=== PATIENT | male | born 1965 | race Caucasian/White ===

== ENCOUNTER → 2017-01-13 | Outpatient (CLI) | payer BC ==
[~2017-01-13] MED LIST: ALBU1AER9 INH; ASCO500T16 PO; CETI10TA10 PO; CHOL2000 PO; CHOL400T5 PO; FLUT0.0529 NAE; FLUT0.15 NAE; FLUT110A INH; FLVHFA110 INH; FURO-85 PO; GABA-112 PO; LORA-741 PO; METO-217 PO; METO25TA56 PO; MYCO500T4 PO; ONDA4TAB46 PO; OXYC-57 PO; OXYC1TAB3 PO; POTA20TA13 PO; VNTHFA/IN INH
--- NOTE | 2017-01-13 16:24 | DIAGNOSTIC IMAGING REPORT ---
CT OF THE ABDOMEN AND PELVIS WITHOUT CONTRAST CLINICAL HISTORY: Acute right lower quadrant pain and burning. Evaluate for hernia. Previous hernia repair. COMPARISON STUDY: No previous studies for comparison. TECHNIQUE: Axial images of the abdomen and pelvis were obtained without IV contrast. Images were reviewed in the axial, sagittal, and coronal planes. FINDINGS: A fat-containing hiatal hernia is noted. There is geographic fatty infiltration within the right hepatic lobe. There is also a 5.2 cm mass-like hypodense focus within the right hepatic dome shown on image 5 of 97. This likely reflects focal fat. Unenhanced images of the spleen, adrenal glands, left kidney and pancreas are normal. Multiple right renal calculi measure up to 5 mm. There are no ureteral calculi. There is no hydronephrosis. There is no evidence for a bowel obstruction. The appendix is not visualized. There are findings consistent with an umbilical hernia repair with mesh. There is no evidence for recurrent umbilical hernia. There is no ascites. Mild mesenteric infiltration is of doubtful significance. There are no suspicious skeletal lesions. There is colonic diverticulosis without evidence for acute diverticulitis. IMPRESSION: 1. Right-sided nephrolithiasis. No ureteral calculi or hydronephrosis. 2. Geographic fatty infiltration within the right hepatic lobe with a 5.2 cm mass-like hypodense focus within the right hepatic dome. This likely reflects focal fat. However, a nonemergent MRI of the liver is recommended to exclude the possibility of an underlying mass. 3. Previous umbilical hernia repair with mesh. No recurrent umbilical hernia. 4. Colonic diverticulosis without evidence for acute diverticulitis. Electronically signed by: Costa June M.D. 01/13/2017 4:22 PM Dictated Date/Time: 01/13/2017 4:12 PM
== END | disposition home or self-care (01) ==
LOC: C.CTS 16:00
PROVIDERS: ATTEND Nurse Practitioner
DX: R10.30 Lower abdominal pain, unspecified (principal); N20.0 Calculus of kidney; K76.0 Fatty (change of) liver, not elsewhere classified; K57.30 Diverticulosis of large intestine without perforation or abscess without bleeding; Z98.890 Other specified postprocedural states

== ENCOUNTER → 2017-01-25 | Outpatient (CLI) | payer BC ==
[~2017-01-25] MED LIST changes: +GADOXETATE DISODIUM (NON-WT BASED PROCEDURE) IV PRN
--- NOTE | 2017-01-25 08:44 | DIAGNOSTIC IMAGING REPORT ---
MRI LIVER COMBO CLINICAL HISTORY: Abnormal CT scan. Right lobe hepatic mass versus geographic fat TECHNIQUE: Imaging was performed prior to and following IV contrast injection. The patient was administered 10 cc of intravenous Eovist. Imaging was performed in the coronal and axial planes. COMPARISON STUDY: CT scan dated 01/13/2017 FINDINGS: The patient had difficulty with breath holding, and the examination is limited from a medical standpoint due to motion artifact. There is a fat-containing hiatal hernia. No splenic masses are visualized. No gallbladder abnormalities are visualized. No pancreatic masses are visualized. No adrenal masses are visualized. There are small T2 bright nonenhancing renal lesions which are felt to represent cysts. The largest is located on the left measuring 16 mm. There is no evidence of abdominal aortic dilatation. There is no ductal dilatation. No hepatic masses are visualized. IMPRESSION: 1. Technically limited study secondary to motion artifact 2. No acute findings. No hepatic masses are visualized. Electronically signed by: Kanu Stoll M.D. 01/25/2017 8:42 AM Dictated Date/Time: 01/25/2017 8:37 AM
== END | disposition home or self-care (01) ==
LOC: C.MRIBC 06:42
PROVIDERS: ATTEND Family Medicine
DX: R10.9 Unspecified abdominal pain (principal)

== ENCOUNTER 2017-03-16 11:26 | Observation (INO) | payer BC ==
[~2017-03-16] VITALS: Ht 182.9 cm; Wt 120.7 kg
[~2017-03-16 11:26] MED LIST changes: -CHOL400T5 PO; -FLUT0.15 NAE; -FLVHFA110 INH; -GABA-112 PO; -GADOXETATE DISODIUM (NON-WT BASED PROCEDURE) IV PRN; -METO-217 PO; -OXYC-57 PO; -VNTHFA/IN INH
[2017-03-16] MEDS ORDERED: ONDANSETRON INJ 2 MG/ML 2 ML VIAL IV STA (11:40)
[2017-03-16] MEDS ORDERED: SODIUM CHLORIDE 0.9% 1000ML 1,000 ML IV STA (11:40)
--- NOTE | 2017-03-16 11:47 | EMERGENCY ROOM VISIT NOTE ---
History Report prepared by Silvestre: Jeremias Blanchard Under the Supervision of: Dr. Naveen Carter M.D. First contact with patient: 11:30 Chief Complaint: DIZZY Stated Complaint: NEAR SYNCOPE History of Present Illness The patient is a 51 year old male who presents to the Emergency Room with complaints of a sudden near syncopal that occurred prior to arrival. Per nursing , the patient was working and was experiencing lightheadedness, weakness, double vision, dysphasia, and felt like he needed to pass out. 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 The patient admits that his CellCept dosage has been reduced in half yesterday when he visited Dr. Chilel. He reports that he took his Lasix this morning, but has not urinated yet. The patient admits that he has a degenerative bone disease. He denies ever having an experience like this before. The patient denies taking any steroids. Source of History: patient Onset: prior to arrival Position: other (global) Quality: other (weakness) Timing: other (sudden) Associated Symptoms: + fatigue, + weakness Review of Systems See HPI for pertinent positives & negatives. A total of 10 systems reviewed and were otherwise negative. Past Medical & Surgical Medical Problems: (1) Appendectomy (2) Chronic inflammatory demyelinating neuropathy (3) Dizziness (4) Guillain-Espinoza syndrome (5) Kidney stone (6) Lyme disease (7) right knee surgery (8) Tonsillectomy Family History Diabetes mellitus FH: cancer FH: gallbladder disease FH: heart disease FH: lung disease Hypertension Kidney disease Kidney stones Seizures Social History Smoking Status: Never Smoker Alcohol Use: occasionally Marital Status: Housing Status: lives with family Occupation Status: employed Current/Historical Medications Scheduled Albuterol Hfa (Ventolin Hfa), 2 PUFFS INH Q4H Cholecalciferol (Vitamin D), 400 UNITS PO DAILY Fluticasone Propionate (Flovent Hfa), 1 PUFFS INH BID Fluticasone Propionate (Nasal) (Flonase Allergy Relief), 2 SPRAY CAROLANN DAILY Gabapentin (Neurontin), 100 MG PO TID Metoprolol Succinate (Toprol Xl), 50 MG PO DAILY Mycophenolate Mofetil (Cellcept), 1,000 MG PO DAILY Potassium Chloride Microencaps (Potassium Chloride Er), 20 MEQ PO DAILY Scheduled PRN Cetirizine Hcl (Zyrtec), 10 MG PO DAILY PRN for Allergy Symptoms Furosemide (Lasix), 20 MG PO UD PRN for SWELLING Lorazepam (Ativan), 0.5 MG PO Q6H PRN for Anxiety and/or Sedation Ondansetron Hcl (Zofran), 4 MG PO Q8 PRN for Nausea Oxycodone Ir (Roxicodone Ir), 5-10 MG PO Q4H PRN for Severe Pain Allergies Coded Allergies: POLLEN (Verified Allergy, Mild, ENVIRONMENTAL-NASAL CONGESTION,WATERY EYES , 03/16/17) Physical Exam Vital Signs Date Time Temp Pulse Resp B/P (MAP) Pulse Ox O2 Delivery O2 Flow Rate FiO2 03/16/17 15:30 98 Room Air 03/16/17 14:34 56 14 118/73 98 Room Air 03/16/17 13:02 54 18 118/79 95 Room Air 03/16/17 12:21 59 03/16/17 11:52 54 133/71 62 139/75 69 134/89 03/16/17 11:46 96 Room Air 03/16/17 11:46 96 Room Air 03/16/17 11:35 36.5 60 16 130/98 96 Room Air Physical Exam GENERAL: Patient is a healthy-appearing well-nourished 51 year old. HEAD: Normocephalic atraumatic EYES: Ocular movements intact pupils equal and react to light OROPHARYNX mucous membranes are moist no exudates present no erythema or edema present NECK: Supple no nuchal rigidity CHEST: Good equal expansion LUNGS: Clear and equal to auscultation CARDIAC: Normal S1 and S2 ABDOMEN: Soft nontender no guarding BACK: No CVA tenderness EXTREMITIES: No pain upon palpation normal muscle strength in all groups no clubbing cyanosis or edema NEURO: Patient is following commands and answering questions appropriately. Alert and oriented x3 Cranial Nerves 2-12 grossly intact Medical Decision & Procedures ER Provider Diagnostic Interpretation: Radiology results as stated below per my review and radiologist interpretation: CT OF THE HEAD WITHOUT CONTRAST CLINICAL HISTORY: Severe dizziness. COMPARISON STUDY: Head CT December 24, 2015. CT DOSE: 651.12 mGy.cm TECHNIQUE: Helical axial images of the head were obtained without IV contrast. Automated exposure control was utilized for the study. FINDINGS: No acute intracranial hemorrhage, midline shift or mass effect is present. Ventricular system is normal. Basilar cisterns are patent. There are no extra-axial collections. -white differentiation is maintained. There are no findings to suggest acute dural sinus thrombosis or acute territorial infarct. There is mild polypoid mucosal thickening of the left maxillary sinus with a mucous retention cyst. There are no significant calvarial abnormalities. IMPRESSION: No acute intracranial findings. Electronically signed by: Costa June M.D. 03/16/2017 1:47 PM Dictated Date/Time: 03/16/2017 1:44 PM CHEST ONE VIEW PORTABLE CLINICAL HISTORY: Pt c/o severe dizziness mental status change COMPARISON STUDY: 09/29/2016 FINDINGS: Mild cardiomegaly. Fixed hernia. Diaphragms smooth. Central catheter in superior vena cava. IMPRESSION: Moderate cardiomegaly. Small fixed hiatal hernia. Electronically signed by: Fidel Bhatia M.D. 03/16/2017 1:31 PM Dictated Date/Time: 03/16/2017 1:31 PM Laboratory Results 03/16/17 12:10 Red Blood Count 4.94, Mean Corpuscular Volume 88.1, Mean Corpuscular Hemoglobin 29.6, Mean Corpuscular Hemoglobin Concent 33.6, Mean Platelet Volume 8.9, Neutrophils (%) (Auto) 70.9, Lymphocytes (%) (Auto) 20.3, Monocytes (%) (Auto) 7.1, Eosinophils (%) (Auto) 1.3, Basophils (%) (Auto) 0.3, Neutrophils # (Auto) 5.36, Lymphocytes # (Auto) 1.54, Monocytes # (Auto) 0.54, Eosinophils # (Auto) 0.10, Basophils # (Auto) 0.02 03/16/17 12:10 Test 03/16/17 11:48 03/16/17 12:10 Bedside Glucose 115 mg/dl (70-99) White Blood Count 7.57 K/uL (4.8-10.8) Red Blood Count 4.94 M/uL (4.7-6.1) Hemoglobin 14.6 g/dL (14.0-18.0) Hematocrit 43.5 % (42-52) Mean Corpuscular Volume 88.1 fL (80-100) Mean Corpuscular Hemoglobin 29.6 pg (25-34) Mean Corpuscular Hemoglobin Concent 33.6 g/dl (32-36) Platelet Count 243 K/uL (130-400) Mean Platelet Volume 8.9 fL (7.4-10.4) Neutrophils (%) (Auto) 70.9 % Lymphocytes (%) (Auto) 20.3 % Monocytes (%) (Auto) 7.1 % Eosinophils (%) (Auto) 1.3 % Basophils (%) (Auto) 0.3 % Neutrophils # (Auto) 5.36 K/uL (1.4-6.5) Lymphocytes # (Auto) 1.54 K/uL (1.2-3.4) Monocytes # (Auto) 0.54 K/uL (0.11-0.59) Eosinophils # (Auto) 0.10 K/uL (0-0.5) Basophils # (Auto) 0.02 K/uL (0-0.2) RDW Standard Deviation 46.3 fL (36.4-46.3) RDW Coefficient of Variation 14.3 % (11.5-14.5) Immature Granulocyte % (Auto) 0.1 % Immature Granulocyte # (Auto) 0.01 K/uL (0.00-0.02) Prothrombin Time 10.3 SECONDS (9.0-12.0) Prothromb Time International Ratio 1.0 (0.9-1.1) Activated Partial Thromboplast Time 23.8 SECONDS (21.0-31.0) Partial Thromboplastin Ratio 0.9 Anion Gap 12.0 mmol/L (3-11) Est Creatinine Clear Calc Drug Dose 126.4 ml/min Estimated GFR () 110.4 Estimated GFR (Non- 95.3 BUN/Creatinine Ratio 16.7 (10-20) Calcium Level 8.8 mg/dl (8.5-10.1) Total Bilirubin 0.4 mg/dl (0.2-1) Direct Bilirubin < 0.1 mg/dl (0-0.2) Aspartate Amino Transf (AST/SGOT) 16 U/L (15-37) Alanine Aminotransferase (ALT/SGPT) 36 U/L (12-78) Alkaline Phosphatase 61 U/L (45-117) Total Creatine Kinase 107 U/L (39-308) Creatine Kinase MB < 0.5 ng/ml (0.5-3.6) Creatine Kinase MB Ratio (0-3.0) Troponin I < 0.015 ng/ml (0-0.045) Total Protein 7.2 gm/dl (6.4-8.2) Albumin 3.9 gm/dl (3.4-5.0) Thyroid Stimulating Hormone (TSH) 0.762 uIu/ml (0.300-4.500) Labs reviewed by ED physician. Medications Administered Medications (Trade) Dose Ordered Sig/Hamzah Route Start Time Stop Time Status Last Admin Dose Admin Sodium Chloride 1,000 ml @ 999 mls/hr Q1H1M STAT IV 03/16/17 11:40 03/16/17 12:40 DC 03/16/17 12:24 999 MLS/HR Ondansetron HCl (Zofran Inj) 4 mg NOW STAT IV 03/16/17 11:40 03/16/17 11:43 DC 03/16/17 12:27 4 MG Meclizine HCl (Antivert Tab) 25 mg NOW STAT PO 03/16/17 13:37 03/16/17 13:38 DC 03/16/17 13:45 25 MG Procedure Procedure: Irrigation Location: Left Ear Details: I disimpacted wax and removed a stethoscope ear piece that was lodged in his ear. ECG Indication: syncope Rate (beats per minute): 54 Rhythm: sinus bradycardia Findings: no acute ischemic change, no ectopy ED Course 1135: Past medical records reviewed. The patient was evaluated in room A11B. A complete history and physical examination was performed. 1140: Zofran Injection 4 mg IV, Sodium Chloride 1000 ml @ 999 mls/hr IV. 1337: Antivert Tab 25 mg PO. 1440: Medication Reconciliation: I attest that I have personally reviewed the patient's current medication list Blood Pressure Screening: Patient was found to have an elevated blood pressure and was referred to their primary care doctor for recheck and further treatment 1442: I discussed the patient's case with Dr. Frederick, [facility] Hospitalist. He understands the patient's conditions and agrees to accept the patient. He told me to run an MRI. The patient will be further evaluated. 1446: Valium Injection 2.5 mg IV. 1515: Dr. Frederick spoke with me regarding a black substance in the patient's left ear. He advises that I perform an irrigation. 1518: I performed an irrigation of the right ear. See procedure notes for further details. Medical Decision The differential diagnosis includes but is not limited to: Etiologies such as vasovagal event, infection, hypoglycemia, electrolyte abnormalities, cardiac sources, intracerebral event, toxicologic, neurologic, as well as others were entertained. This is a 31-year-old male with chronic demyelinating neuropathy who is on CellCept that presents emergency Department with increased dizziness. The patient is on Lasix at home and his CellCept was decreased yesterday by his doctor in [place]. The patient has a normal CBC renal profile. He is not orthostatic. An IV was established, the patient given normal saline bolus, meclizine as well as Valium. Repeat examination did not reveal improvement in the patient's symptoms. Patient still feels dizzy and weak and is requesting to be admitted so I did discuss the case with both case management as well as the hospitalist who agreed to admit the patient. Patient and family were in agreement with the treatment plan. Consults Time Called: 1442 Consulting Physician: Dr. Frederick, [facility] Hospitalist Returned Call: 1442 I discussed the patient's case with Dr. Frederick, [facility] Hospitalist. He understands the patient's conditions and aggres to accept the patient. He told me to run an MRI. The patient will be further evaluated. Impression Primary Impression: Dizziness Scribe Attestation The scribe's documentation has been prepared under my direction and personally reviewed by me in its entirety. I confirm that the note above accurately reflects all work, treatment, procedures, and medical decision making performed by me. Departure Information Dispostion Being Evaluated By Hospitalist (Dr. Frederick) Referrals Heather Aguirre M.D. (PCP) Patient Instructions [facility]
[2017-03-16] MEDS ORDERED: METO-217 PO (11:49)
[2017-03-16] MEDS ORDERED: CHOL400T5 PO (11:49)
[2017-03-16] MEDS ORDERED: VNTHFA/IN INH (11:49)
[2017-03-16] MEDS ORDERED: GABA-112 PO (11:50)
[2017-03-16] MEDS ORDERED: FLVHFA110 INH (11:52)
[2017-03-16] MEDS ORDERED: FLUT0.15 NAE (11:52)
[2017-03-16 12:30] LABS: BASO % 0.3 %; BASO ABS # 0.02 K/uL (0-0.2); COMPLETE YES; EOS % 1.3 %; HEMATOCRIT 43.5 % (42-52); IG% 0.1 %; LYMPH % 20.3 %; LYMPH ABS # 1.54 K/uL (1.2-3.4); MEAN CELL VOLUME 88.1 fL (80-100); MEAN CORPUSCULAR HEMOGLOBIN 29.6 pg (25-34); MEAN CORPUSCULAR HGB CONC 33.6 g/dl (32-36); MEAN PLATELET VOLUME 8.9 fL (7.4-10.4); MONO % 7.1 %; NEUT % 70.9 %; PLATELET COUNT 243 K/uL (130-400); RED BLOOD COUNT 4.94 M/uL (4.7-6.1); WHITE BLOOD COUNT 7.57 K/uL (4.8-10.8)
[2017-03-16 12:47] LABS: ALT/SGPT 36 U/L (12-78); BLOOD UREA NITROGEN 15 mg/dl (7-18); BUN/CREATININE RATIO 16.7 (10-20); CARBON DIOXIDE 22 mmol/L (21-32); CHLORIDE 108 mmol/L (98-107); CREATININE 0.92 mg/dl (0.60-1.40); GLUCOSE 126 mg/dl (70-99); POTASSIUM 3.8 mmol/L (3.5-5.1); SODIUM 142 mmol/L (136-145)
[2017-03-16 12:50] LABS: CALCIUM 8.8 mg/dl (8.5-10.1)
[2017-03-16 12:58] LABS: ALKALINE PHOSPHATASE 61 U/L (45-117); AST/SGOT 16 U/L (15-37); THYROID STIMULATING HORMONE 0.762 uIu/ml (0.300-4.500)
--- NOTE | 2017-03-16 13:33 | DIAGNOSTIC IMAGING REPORT ---
CHEST ONE VIEW PORTABLE CLINICAL HISTORY: Pt c/o severe dizziness mental status change COMPARISON STUDY: 09/29/2016 FINDINGS: Mild cardiomegaly. Fixed hernia. Diaphragms smooth. Central catheter in superior vena cava. IMPRESSION: Moderate cardiomegaly. Small fixed hiatal hernia. Electronically signed by: Fidel Bhatia M.D. 03/16/2017 1:31 PM Dictated Date/Time: 03/16/2017 1:31 PM
[2017-03-16] MEDS ORDERED: MECLIZINE HCL 25 MG TAB PO STA (13:37)
--- NOTE | 2017-03-16 14:17 | DIAGNOSTIC IMAGING REPORT ---
CT OF THE HEAD WITHOUT CONTRAST CLINICAL HISTORY: Severe dizziness. COMPARISON STUDY: Head CT December 24, 2015. CT DOSE: 651.12 mGy.cm TECHNIQUE: Helical axial images of the head were obtained without IV contrast. Automated exposure control was utilized for the study. FINDINGS: No acute intracranial hemorrhage, midline shift or mass effect is present. Ventricular system is normal. Basilar cisterns are patent. There are no extra-axial collections. -white differentiation is maintained. There are no findings to suggest acute dural sinus thrombosis or acute territorial infarct. There is mild polypoid mucosal thickening of the left maxillary sinus with a mucous retention cyst. There are no significant calvarial abnormalities. IMPRESSION: No acute intracranial findings. Electronically signed by: Costa June M.D. 03/16/2017 1:47 PM Dictated Date/Time: 03/16/2017 1:44 PM
[2017-03-16] MEDS: DIAZEPAM INJ 5 MG/ML 2 ML CARP IV STA ×2 (14:46→16:35)
[2017-03-16] MEDS ORDERED: ALUMINUM/MAGNESIUM/SIMETH (MAALOX MAX) 30 ML UDC PO PRN (15:00)
[2017-03-16] MEDS ORDERED: ACETAMINOPHEN 325 MG TAB PO PRN (15:00)
[2017-03-16] MEDS ORDERED: MAGNESIUM HYDROXIDE SUSP 30 ML UDC PO PRN (15:00)
[2017-03-16] MEDS ORDERED: CETIRIZINE HCL 10 MG TAB PO PRN (15:00)
[2017-03-16] MEDS ORDERED: OXYCODONE HCL IR 5 MG TAB (IMMEDIATE RELEASE) PO PRN (15:00)
[2017-03-16] MEDS ORDERED: ONDANSETRON INJ 2 MG/ML 2 ML VIAL IV PRN (15:00)
[2017-03-16] MEDS ORDERED: LORAZEPAM 0.5 MG TAB PO PRN (15:00)
[2017-03-16] MEDS ORDERED: POLYETHYLENE (MIRALAX) 17 GM PACK PO PRN (15:00)
[2017-03-16] MEDS ORDERED: IV FLUIDS COMPLETED PRN (15:15)
[2017-03-16 15:30] VITALS: O2SAT 98; Ht 182.9 cm; Wt 120.7 kg
--- NOTE | 2017-03-16 15:45 | History and Physical ---
History & Physical Date & Time of Service: Mar 16, 2017 at 15:13 Chief Complaint: Near Syncope Primary Care Physician: Heather Aguirre M.D. History of Present Illness Source: patient 51 y/o M Hx CIDP on Cellcept. Pt follows with a neurologist at [facility] and recently decreased his Cellcept dose. He was at work today when he became acutely dizzy. He describes poor balance, double vision, nausea and sweating. He states that his coworkers called EMS as they felt he was slurring his speech. He did not confirm this. He had somewhat improved in the ER however he remains generally dizzy and describes weakness. He denies CP, SOB or fevers. The pt states that the above symptoms do not correspond to the symptoms he might have with a CIDP flair which normally manifests as motor deficits. Past Medical/Surgical History Medical Problems: (1) Appendectomy Status: Resolved (2) Chronic inflammatory demyelinating neuropathy Status: Chronic (3) Guillain-Espinoza syndrome Status: Chronic (4) Kidney stone Status: Chronic (5) Lyme disease Status: Chronic (6) right knee surgery Status: Resolved (7) Tonsillectomy Status: Resolved 8) CHF is in the record - this is inaccurate - there is a normal echo from 2015 He states that as a side effect of Cellcept he occasionally has edema Family History Diabetes mellitus FH: cancer FH: gallbladder disease FH: heart disease FH: lung disease Hypertension Kidney disease Kidney stones Seizures Social History Does not smoke - social drinker - works in IT and also farms beef cattle Smoking Status: Never Smoker Marital Status: Occupational Status: employed Immunizations History of Influenza Vaccine: N/A History of Tetanus Vaccine?: Yes Tetanus Immunization Date: Oct 16, 2011 History of Pneumococcal: Unknown History of Hepatitis B Vaccine: Unknown Multi-Drug Resistant Organisms History of MDRO: No Allergies Coded Allergies: POLLEN (Verified Allergy, Mild, ENVIRONMENTAL-NASAL CONGESTION,WATERY EYES , 03/16/17) Home Medications Scheduled Albuterol Hfa (Ventolin Hfa), 2 PUFFS INH Q4H Cholecalciferol (Vitamin D), 400 UNITS PO DAILY Fluticasone Propionate (Flovent Hfa), 1 PUFFS INH BID Fluticasone Propionate (Nasal) (Flonase Allergy Relief), 2 SPRAY CAROLANN DAILY Gabapentin (Neurontin), 100 MG PO TID Metoprolol Succinate (Toprol Xl), 50 MG PO DAILY Mycophenolate Mofetil (Cellcept), 1,000 MG PO DAILY Potassium Chloride Microencaps (Potassium Chloride Er), 20 MEQ PO DAILY Scheduled PRN Cetirizine Hcl (Zyrtec), 10 MG PO DAILY PRN for Allergy Symptoms Furosemide (Lasix), 20 MG PO UD PRN for SWELLING Lorazepam (Ativan), 0.5 MG PO Q6H PRN for Anxiety and/or Sedation Ondansetron Hcl (Zofran), 4 MG PO Q8 PRN for Nausea Oxycodone Ir (Roxicodone Ir), 5-10 MG PO Q4H PRN for Severe Pain Review of Systems Constitutional: + weakness, + fatigue, No fever, No chills, No sweats Eyes: + worsening of vision, + diplopia ENT: No hearing loss, No unusual epistaxis, No nasal symptoms Respiratory: No cough, No sputum, No wheezing Cardiovascular: No chest pain, No orthopnea, No PND Abdomen: + nausea, No pain, No vomiting Musculoskeletal: No joint pain, No muscle pain Genitourinary - Male: No hematuria, No dysuria, No urinary frequency Neurologic: + weakness, No memory loss, No paralysis Psychiatric: No depression symptoms Endocrine: + fatigue Hematologic / Lymphatic: No abnormal bleeding/bruising Integumentary: No rash Allergic / Immunologic: No environmental allergies Physical Exam Vital Signs Date Time Temp Pulse Resp B/P (MAP) Pulse Ox O2 Delivery O2 Flow Rate FiO2 03/16/17 14:34 56 14 118/73 98 Room Air 03/16/17 13:02 54 18 118/79 95 Room Air 03/16/17 12:21 59 03/16/17 11:52 54 133/71 62 139/75 69 134/89 03/16/17 11:46 96 Room Air 03/16/17 11:46 96 Room Air 03/16/17 11:35 36.5 60 16 130/98 96 Room Air General Appearance: WD/WN, no apparent distress Head: normocephalic Eyes: normal inspection, PERRL, EOMI ENT: normal ENT inspection, hearing grossly normal, pharynx normal, + pertinent finding (There is black discoloration in the L ear which is likely wax impaction - no pain is present) Neck: supple, no JVD Respiratory/Chest: chest non-tender, lungs clear, normal breath sounds, no respiratory distress, no accessory muscle use Cardiovascular: regular rate, rhythm, no edema, no gallop, no JVD, no murmur, normal peripheral pulses Abdomen/GI: normal bowel sounds, non tender, soft Back: normal inspection, no CVA tenderness, no muscle spasm Extremities/Musculoskelatal: normal inspection, no calf tenderness, normal capillary refill, no pedal edema, normal range of motion 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, no motor/sensory deficits, alert, normal mood/affect, normal reflexes, oriented x 3, + pertinent finding (there is no facial asymmetry or nystagmus, no motor or sensory deficits - no weakness or coordination deficit noted at tome of admission) Skin: normal color, warm/dry, no rash Diagnostics Laboratory Results Results Past 24 Hours Test 03/16/17 11:48 03/16/17 12:10 Range/Units Bedside Glucose 115 70-99 mg/dl White Blood Count 7.57 4.8-10.8 K/uL Red Blood Count 4.94 4.7-6.1 M/uL Hemoglobin 14.6 14.0-18.0 g/dL Hematocrit 43.5 42-52 % Mean Corpuscular Volume 88.1 80-100 fL Mean Corpuscular Hemoglobin 29.6 25-34 pg Mean Corpuscular Hemoglobin Concent 33.6 32-36 g/dl Platelet Count 243 130-400 K/uL Mean Platelet Volume 8.9 7.4-10.4 fL Neutrophils (%) (Auto) 70.9 % Lymphocytes (%) (Auto) 20.3 % Monocytes (%) (Auto) 7.1 % Eosinophils (%) (Auto) 1.3 % Basophils (%) (Auto) 0.3 % Neutrophils # (Auto) 5.36 1.4-6.5 K/uL Lymphocytes # (Auto) 1.54 1.2-3.4 K/uL Monocytes # (Auto) 0.54 0.11-0.59 K/uL Eosinophils # (Auto) 0.10 0-0.5 K/uL Basophils # (Auto) 0.02 0-0.2 K/uL RDW Standard Deviation 46.3 36.4-46.3 fL RDW Coefficient of Variation 14.3 11.5-14.5 % Immature Granulocyte % (Auto) 0.1 % Immature Granulocyte # (Auto) 0.01 0.00-0.02 K/uL Sodium Level 142 136-145 mmol/L Potassium Level 3.8 3.5-5.1 mmol/L Chloride Level 108 98-107 mmol/L Carbon Dioxide Level 22 21-32 mmol/L Anion Gap 12.0 3-11 mmol/L Blood Urea Nitrogen 15 7-18 mg/dl Creatinine 0.92 0.60-1.40 mg/dl Est Creatinine Clear Calc Drug Dose 126.4 ml/min Estimated GFR () 110.4 Estimated GFR (Non- 95.3 BUN/Creatinine Ratio 16.7 10-20 Random Glucose 126 70-99 mg/dl Calcium Level 8.8 8.5-10.1 mg/dl Total Bilirubin 0.4 0.2-1 mg/dl Direct Bilirubin < 0.1 0-0.2 mg/dl Aspartate Amino Transf (AST/SGOT) 16 15-37 U/L Alanine Aminotransferase (ALT/SGPT) 36 12-78 U/L Alkaline Phosphatase 61 45-117 U/L Total Creatine Kinase 107 39-308 U/L Creatine Kinase MB < 0.5 0.5-3.6 ng/ml Creatine Kinase MB Ratio 0-3.0 Troponin I < 0.015 0-0.045 ng/ml Total Protein 7.2 6.4-8.2 gm/dl Albumin 3.9 3.4-5.0 gm/dl Thyroid Stimulating Hormone (TSH) 0.762 0.300-4.500 uIu/ml Diagnostic Radiology CT head: no acute findings EKG Sinus amadou 56BPM Impression Assessment and Plan 51 y/o M Hx CIDP on Cellcept. Pt follows with a neurologist at [facility] and recently decreased his Cellcept dose. He was at work today when he became acutely dizzy. He describes poor balance, double vision, nausea and sweating. He states that his coworkers called EMS as they felt he was slurring his speech. He did not confirm this. He had somewhat improved in the ER however he remains generally dizzy and describes weakness. He denies CP, SOB or fevers. 1) Acute dizziness, diplopia - reports of slurred speech - no deficits at time of admission - this was accompanied by nausea and diaphoresis - no unilateral symptoms were present. The pt is admitted to r/o TIA - MRI/MRA carotid dopplers requested. Will be monitored on telemetry and provided with ASA in the interim. As he has an underlying disorder, we might consider contacting his neurologist at [facility] if there is no evidence of CVA/TIA and his symptoms persist 2) CIDP - We will continue Cellcept as ordered 3) Asthma - no evidence of exacerbation - consider current inhalers 4) Bradycardia - this is mild however we will hold his B alex and monitor on telemetry to trend his rate as symptomatic bradycardia is in the differential. Full code - Heparin prophylaxis Total time for this admit including review of labs, meds, EKG - discussion with pt and ER attending Level of Care Telemetry Resuscitation Status FULL RESUSCITATION VTE Prophylaxis VTE Risk Assessment Done? Y/N: Yes Risk Level: Moderate Given or contraindicated: Unfractionated heparin SQ
[2017-03-16 16:01] LABS: PARTIAL THROMBOPLASTIN RATIO 0.9; PROTHROMBIN TIME (PATIENT) 10.3 SECONDS (9.0-12.0)
[2017-03-16 16:51] LABS: MANUAL MICROSCOPIC REQUIRED? NO; REVIEW REQ? NO; URINE APPEARANCE CLEAR (CLEAR); URINE BILIRUBIN NEG (NEG); URINE COLOR YELLOW; URINE NITRITE NEG (NEG); URINE SPECIFIC GRAVITY 1.025 (1.000-1.030); UROBILINOGEN NEG (NEG)
--- NOTE | 2017-03-16 16:54 | DIAGNOSTIC IMAGING REPORT ---
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 COMPARISON: None. FINDINGS: There are no radiopaque foreign bodies identified within the orbits. There is a tiny metallic foreign body within the frontal scalp. IMPRESSION: 1. Tiny metallic foreign body within the frontal scalp 2. No radiopaque intraorbital foreign bodies identified Electronically signed by: Kanu Stoll M.D. 03/16/2017 4:52 PM Dictated Date/Time: 03/16/2017 4:51 PM
--- NOTE | 2017-03-16 17:20 | DIAGNOSTIC IMAGING REPORT ---
MR ANGIOGRAPHY OF THE [place] NO CONTRAST CLINICAL HISTORY: cva DIZZINESS, SLURRED SPEECH. HEADACHE. DOUBLE VISION. COMPARISON STUDY: None. A 3-D [id number] MR angiographic sequence of the [place] was performed. Both the source and projection images were reviewed. There is no evidence of major intracranial branch occlusion. There is no evidence of intracranial stenosis. There are no lesions suspicious for aneurysm. There is a hypoplastic right A1 segment. IMPRESSION: Hypoplastic right A1 segment. Otherwise unremarkable MR angiography of the [place] Electronically signed by: Kanu Stoll M.D. 03/16/2017 5:19 PM Dictated Date/Time: 03/16/2017 5:16 PM
--- NOTE | 2017-03-16 18:17 | DIAGNOSTIC IMAGING REPORT ---
MRI OF THE BRAIN WITHOUT CONTRAST CLINICAL HISTORY: Dizziness, slurred speech, headache. Double vision. COMPARISON STUDY: Head CT dated 03/16/2017 FINDINGS: Sagittal T1, axial diffusion, proton density and T2 weighted axial, coronal FLAIR, and axial T1-weighted images were acquired. No intra or extra-axial mass lesions are visualized Axial diffusion-weighted images reveal no evidence of acute or subacute infarction. There is no evidence of ventricular dilatation. Proton density T2-weighted and FLAIR images reveal scattered foci of increased T2 signal within the white matter, likely on a small vessel basis. There are no abnormal flow voids. IMPRESSION: 1. No evidence of intracranial mass in this noncontrast study 2. No evidence of acute or subacute infarction 3. Nonspecific scattered foci of increased T2 signal within the white matter, likely on a small vessel basis Electronically signed by: Kanu Stoll M.D. 03/16/2017 6:16 PM Dictated Date/Time: 03/16/2017 6:14 PM
--- NOTE | 2017-03-16 18:20 | DIAGNOSTIC IMAGING REPORT ---
MRA NECK WITHOUT CONTRAST CLINICAL HISTORY: Slurred speech, headache. Double vision. Dizziness. Possible stroke. COMPARISON STUDY: No previous studies for comparison. FINDINGS: A noncontrast MR angiographic study of the neck was performed. There is no evidence of hemodynamic significant carotid stenosis. Both vertebral arteries appear patent. IMPRESSION: 1. No evidence of hemodynamic significant carotid stenosis. 2. Both vertebral arteries appear patent as visualized Electronically signed by: Kanu Stoll M.D. 03/16/2017 6:19 PM Dictated Date/Time: 03/16/2017 6:17 PM
--- NOTE | 2017-03-16 18:53 | DIAGNOSTIC IMAGING REPORT ---
ULTRASOUND OF THE CAROTID ARTERIES CLINICAL HISTORY: Slurred speech headache, vision dizziness. Possible stroke. COMPARISON STUDY: None TECHNIQUE: Real-time, grayscale, and color Doppler sonography of the carotid arteries was performed. Imaging reviewed in the transverse and longitudinal planes. NASCET criteria was utilized for stenosis calcification. FINDINGS: There is minor atherosclerotic plaque present . The peak systolic velocity within the right internal carotid artery is 36 cm/sec. The systolic velocity ratio of right internal to common carotid artery is 0.65. The peak systolic velocity within the left internal carotid artery is 69 cm/sec. The systolic velocity ratio left internal to common carotid artery is 0.8. Antegrade flow is seen in the vertebral arteries. The external carotid arteries are patent. Blood pressure in the right arm measured 120 mm/Hg. Blood pressure in the left arm measured 123 mm/Hg. IMPRESSION: No evidence of hemodynamically significant carotid stenosis. Electronically signed by: Kanu Stoll M.D. 03/16/2017 6:52 PM Dictated Date/Time: 03/16/2017 6:50 PM
[2017-03-16] MEDS ORDERED: NSS + 20MEQ KCL 1000ML 1,000 ML IV SCH (19:00)
[2017-03-16 19:01] VITALS: BP 141/83; PULSE 60; TEMP 36.5; O2SAT 98
[2017-03-16 19:25] VITALS: BP_SYST 123; BP_SYST 134; BP_DIAS 52; BP_DIAS 73; PULSE 56; PULSE 57
[2017-03-16 19:26] VITALS: BP 124/75; PULSE 61
[2017-03-16] MEDS: FLUTICASONE HFA 110MCG INHALER INH SCH (20:33)
[2017-03-16] MEDS: GABAPENTIN 100 MG CAP PO SCH (20:33)
[2017-03-16] MEDS: ALBUTEROL HFA 8 GM INHALER INH SCH ×2 (20:33→20:51)
[2017-03-16] MEDS: HEPARIN SOD 5000 UNIT/0.5 ML CARP SQ SCH (20:36)
[2017-03-16 23:05] VITALS: BP 115/68; PULSE 58; TEMP 36.5; O2SAT 95
[2017-03-17] MEDS: ALBUTEROL HFA 8 GM INHALER INH SCH ×4 (00:39→11:57)
[2017-03-17 03:16] VITALS: BP_SYST 111; BP_SYST 121; BP_SYST 134; BP_DIAS 70; BP_DIAS 74; BP_DIAS 78; PULSE 57; PULSE 58; PULSE 64; TEMP 36.4; O2SAT 96
[2017-03-17] MEDS: HEPARIN SOD 5000 UNIT/0.5 ML CARP SQ SCH ×2 (05:44→13:25)
[2017-03-17 07:31] VITALS: BP_SYST 121; BP_SYST 122; BP_SYST 131; BP_DIAS 73; BP_DIAS 75; BP_DIAS 77; PULSE 55; TEMP 36.8; O2SAT 97
[2017-03-17] MEDS: GABAPENTIN 100 MG CAP PO SCH ×2 (07:58→13:25)
[2017-03-17] MEDS: FLUTICASONE HFA 110MCG INHALER INH SCH (07:58)
[2017-03-17] MEDS ORDERED: CHOLECALCIFEROL 1000 INTER.UNIT TAB PO SCH (09:00)
[2017-03-17] MEDS ORDERED: FLUTICASONE PROPIONATE NA SPR 16 GM BTL NAE SCH (09:00)
[2017-03-17] MEDS ORDERED: MYCOPHENOLATE MOFETIL 250 MG CAP (CELLCEPT) PO SCH (09:00)
[2017-03-17] MEDS ORDERED: ATORVASTATIN 20 MG TAB PO SCH (09:00)
[2017-03-17] MEDS ORDERED: ASPIRIN/ALUM/MAGNES/CAL CARB 325 MG TAB PO SCH (09:00)
[2017-03-17] MEDS ORDERED: POTASSIUM CHLORIDE 20 MEQ TABCR PO SCH (09:00)
[2017-03-17 10:10] LABS: HEMATOCRIT 42.2 % (42-52); MEAN CELL VOLUME 90.6 fL (80-100); MEAN CORPUSCULAR HGB CONC 33.2 g/dl (32-36); MEAN PLATELET VOLUME 9.4 fL (7.4-10.4); PLATELET COUNT 229 K/uL (130-400); RED BLOOD COUNT 4.66 M/uL (4.7-6.1); WHITE BLOOD COUNT 5.66 K/uL (4.8-10.8)
[2017-03-17 10:30] LABS: CHOLESTEROL/HDL RATIO 4.9
[2017-03-17 10:32] LABS: BUN/CREATININE RATIO 12.2 (10-20); CREATININE 1.2 mg/dl (0.60-1.40)
[2017-03-17 10:35] LABS: CALCIUM 8.6 mg/dl (8.5-10.1)
[2017-03-17 11:40] VITALS: BP 126/73; PULSE 58; TEMP 36.7; O2SAT 96
--- NOTE | 2017-03-17 12:59 | Discharge Instructions ---
Discharge Instructions Date of Service Mar 17, 2017. Admission Reason for Admission: Dizziness Discharge Discharge Diagnosis / Problem: Near Syncope Discharge Goals Goal(s): Decrease discomfort, Improve function, Increase independence Activity Recommendations Activity Limitations: resume your previous activity . Instructions / Follow-Up Instructions / Follow-Up Near Syncope: - You were admitted for dizziness, blurred vision, sweating, and possible blurred speech. Imaging performed here does not show any signs of a stroke. - Would recommend to continue home medications as previously prescribed, we did not make any adjustments - Be mindful of your heart rate while on your metoprolol as this medication can cause a lower heart rate that can contribute to your presenting symptoms - Your triglycerides were 362 on our labs. You did eat prior to this lab being obtained and can alter results. We would like that number < 150. Would recommend follow-up routine cholesterol testing by your family doctor. Follow-Up: - Follow up with your family doctor in 7-10 days Current Hospital Diet Patient's current hospital diet: Regular Diet Discharge Diet Recommended Diet: Regular Diet Pending Studies Studies pending at discharge: no Laboratory Results Lipid Panel Test 03/17/17 09:35 Range/Units Triglycerides Level 362 H 0-150 mg/dl Cholesterol Level 168 0-200 mg/dl HDL Cholesterol 34 mg/dl Cholesterol/HDL Ratio 4.9 LDL Cholesterol, Calculated 62 mg/dl Medical Emergencies . Who to Call and When: Medical Emergencies: If at any time you feel your situation is an emergency, please call 911 immediately. . Non-Emergent Contact Non-Emergency issues call your: Primary Care Provider Call Non-Emergent contact if: you have a fever, your pain is concerning you, you have any medication questions . . "Provider Documentation" section prepared by Edita Shepherd. . VTE Core Measure Inpt VTE Proph given/why not?: Unfractionated heparin SQ
[2017-03-17] MEDS ORDERED: MYCO500T4 PO (13:08)
[2017-03-17 13:21] VITALS: BP 126/73; PULSE 58; TEMP 36.7; O2SAT 96
--- NOTE | 2017-03-17 15:38 | Discharge Summary ---
Discharge Summary Date of Service Mar 17, 2017. Discharge Summary Admission Date: Mar 16, 2017 at 14:59 Discharge Date: Mar 17, 2017 Discharge Disposition: Home Principal Diagnosis: Near Syncope Problems/Secondary Diagnoses: 1. 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 Lyme Disease Immunizations: Have You Had Influenza Vaccine: N/A History of Tetanus Vaccine?: Yes Tetanus Immunization Date: Oct 16, 2011 History of Pneumococcal: Unknown History of Hepatitis B Vaccine: Unknown Procedures: 1. MRI OF THE BRAIN WITHOUT CONTRAST FINDINGS: Sagittal T1, axial diffusion, proton density and T2 weighted axial, coronal FLAIR, and axial T1-weighted images were acquired. No intra or extra-axial mass lesions are visualized Axial diffusion-weighted images reveal no evidence of acute or subacute infarction. There is no evidence of ventricular dilatation. Proton density T2-weighted and FLAIR images reveal scattered foci of increased T2 signal within the white matter, likely on a small vessel basis. There are no abnormal flow voids. IMPRESSION: 1. No evidence of intracranial mass in this noncontrast study 2. No evidence of acute or subacute infarction 3. Nonspecific scattered foci of increased T2 signal within the white matter, likely on a small vessel basis 2. MRA NECK WITHOUT CONTRAST FINDINGS: A noncontrast MR angiographic study of the neck was performed. There is no evidence of hemodynamic significant carotid stenosis. Both vertebral arteries appear patent. IMPRESSION: 1. No evidence of hemodynamic significant carotid stenosis. 2. Both vertebral arteries appear patent as visualized 3. MR ANGIOGRAPHY OF THE [place] NO CONTRAST A 3-D quwz-il-idiexe MR angiographic sequence of the [place] was performed. Both the source and projection images were reviewed. There is no evidence of major intracranial branch occlusion. There is no evidence of intracranial stenosis. There are no lesions suspicious for aneurysm. There is a hypoplastic right A1 segment. IMPRESSION: Hypoplastic right A1 segment. Otherwise unremarkable MR angiography of the [place] 4. ULTRASOUND OF THE CAROTID ARTERIES FINDINGS: There is minor atherosclerotic plaque present . The peak systolic velocity within the right internal carotid artery is 36 cm/sec. The systolic velocity ratio of right internal to common carotid artery is 0.65. The peak systolic velocity within the left internal carotid artery is 69 cm/sec. The systolic velocity ratio left internal to common carotid artery is 0.8. Antegrade flow is seen in the vertebral arteries. The external carotid arteries are patent. Blood pressure in the right arm measured 120 mm/Hg. Blood pressure in the left arm measured 123 mm/Hg. IMPRESSION: No evidence of hemodynamically significant carotid stenosis. Medication Reconciliation Continued Medications: Albuterol Hfa (Ventolin Hfa) 200 Puffs/68274 Mcg Aers 2 PUFFS INH Q4H, #1 INHALER Cetirizine Hcl (Zyrtec) 10 Mg Tab 10 MG PO DAILY PRN for Allergy Symptoms for 30 Days, TAB Cholecalciferol (Vitamin D) 400 Unit Tab 400 UNITS PO DAILY Fluticasone Propionate (Flovent Hfa) 120 Puffs/48255 Mcg Aero 1 PUFFS INH BID for 30 Days, #1 INHALER 3 Refills Fluticasone Propionate (Nasal) (Flonase Allergy Relief) 50 Mcg/Act Spr 2 SPRAY CAROLANN DAILY Furosemide (Lasix) 20 Mg Tab 20 MG PO UD PRN for SWELLING Gabapentin (Neurontin) 100 Mg Cap 100 MG PO TID, CAP Lorazepam (Ativan) 0.5 Mg Tab 0.5 MG PO Q6H PRN for Anxiety and/or Sedation, TAB Metoprolol Succinate (Toprol Xl) 50 Mg Tabcr 50 MG PO DAILY, #30 TAB Mycophenolate Mofetil (Cellcept) 500 Mg Tab 500 MG PO, TAB Ondansetron Hcl (Zofran) 4 Mg Tab 4 MG PO Q8 PRN for Nausea, TAB Oxycodone Ir (Roxicodone Ir) 5 Mg Tab 5-10 MG PO Q4H PRN for Severe Pain, TAB Potassium Chloride Microencaps (Potassium Chloride Er) 20 Meq Tab 20 MEQ PO DAILY, TAB Discontinued Medications: Mycophenolate Mofetil (Cellcept) 500 Mg Tab 1000 MG PO DAILY, TAB Discharge Exam Review of Systems: Constitutional: + fatigue, + problem reported (diffuse mild headache), No fever, No chills Eyes: No worsening of vision, No eye pain, No diplopia ENT: + hearing loss (progressive and chronic), + tinnitus (chronic), No nasal symptoms, No sore throat, No trouble swallowing Respiratory: No cough, No shortness of breath Cardiovascular: No chest pain, No palpitations Abdomen: No pain, No nausea, No vomiting, No diarrhea, No constipation Musculoskeletal: No joint pain, No muscle pain, No swelling, No calf pain Genitourinary - Male: No dysuria Neurologic: No memory loss, No weakness, No numbness/tingling, No vertigo, No balance problems Hematologic / Lymphatic: No abnormal bleeding/bruising Integumentary: No rash Physical Exam: General Appearance: WD/WN, no apparent distress Eyes: PERRL, sclerae normal ENT: hearing grossly normal Neck: supple, no JVD, trachea midline Respiratory/Chest: lungs clear, normal breath sounds, no respiratory distress, no accessory muscle use Cardiovascular: regular rate, rhythm, no gallop, no murmur Abdomen / GI: normal bowel sounds, non tender, soft Extremities: no calf tenderness, no pedal edema Neurologic/Psychiatric: no motor/sensory deficits, alert, oriented x 3 Skin: normal color, warm/dry Hospital Course ADMISSION: 51 y/o M Hx CIDP on Cellcept. Pt follows with a neurologist at [place] and recently decreased his Cellcept dose. He was at work today when he became acutely dizzy. He describes poor balance, double vision, nausea and sweating. He states that his coworkers called EMS as they felt he was slurring his speech. He did not confirm this. He had somewhat improved in the ER however he remains generally dizzy and describes weakness. He denies CP, SOB or fevers. The pt states that the above symptoms do not correspond to the symptoms he might have with a CIDP flair which normally manifests as motor deficits. HOSPITAL COURSE: Mr. Medrano was admitted for a near syncopal episode with diplopia, balance deficit, nausea, and diaphoresis. Co-workers were concerned for possible slurred speech. He was admitted for TIA/CVA workup. Please see procedures for imaging reports. No evidence of acute CVA appreciated. All presenting symptoms have resolved. Only complaint is of generalized fatigue and diffuse headache. Patient reports that he gets frequent headaches and this is mild in comparison. He recently had his Cellcept reduced to 500 mg daily from 1000 mg on 03/15. However, patient reports that he normally would forget his second dose and largely was only taking 500 mg daily prior to Wednesday. In the ED , admitted doctor noticed cerumen impaction which was removed. Patient reports a lot of his symptoms improved after this. Did discuss with Dr. Chilel's ( Neurologist) nurse and he did not suspect current symptoms were related to CIDP. TIA is not suspected. He is stable and optimal for discharge home with PCP follow-up. Total Time Spent: Greater than 30 minutes This includes examination of the patient, discharge planning, medication reconciliation, and communication with other providers. Discharge Instructions Please refer to the electronic Patient Visit Report (Discharge Instructions) for additional information. Additional Copies To Heather Aguirre M.D.
[2017-03-26] MEDS ORDERED: OXYC-57 PO (13:38)
== END 2017-03-17 13:40 | disposition home or self-care (01) ==
LOC: EDBD 11:26 → C.EDA 11:27 → C.2T 14:59 → ENRESERV 15:06 → CANRESERV 15:06 → EDBEDREQ 15:56 → ENRESERV 15:58
PROVIDERS: ADMIT Internal Medicine; ATTEND Internal Medicine
DX: R55 Syncope and collapse (principal); R00.1 Bradycardia, unspecified; G61.81 Chronic inflammatory demyelinating polyneuritis; J45.909 Unspecified asthma, uncomplicated; G61.0 Guillain-Barre syndrome; Z82.49 Family history of ischemic heart disease and other diseases of the circulatory system; Z83.3 Family history of diabetes mellitus; Z98.890 Other specified postprocedural states; Z83.6 Family history of other diseases of the respiratory system; Z84.1 Family history of disorders of kidney and ureter; Z79.899 Other long term (current) drug therapy; Z82.0 Family history of epilepsy and other diseases of the nervous system

== ENCOUNTER → 2017-03-26 | Day surgery (SDC) | payer BC ==
[~2017-03-26] VITALS: Ht 182.9 cm; Wt 118.0 kg
[~2017-03-26] MED LIST changes: -ALBU1AER9 INH; -ASCO500T16 PO; +CEFAZOLIN 1000MG/55 ML D5W IV SCH; +CEFAZOLIN 2000 MG/60 ML D5W 60 ML IV SCH; -CHOL2000 PO; +CHOL400T5 PO; +FENTANYL CITRATE INJ 50 MCG/1 ML 2 ML VIAL IV ONE; +FENTANYL CITRATE INJ 50 MCG/1 ML 2 ML VIAL ONE; -FLUT0.0529 NAE; +FLUT0.15 NAE; -FLUT110A INH; +FLVHFA110 INH; +GABA-112 PO; +LIDOCAINE HCL 1% 20 ML VIAL ONE; +METO-217 PO; -METO25TA56 PO; +MIDAZOLAM HCL 1 MG/ML 2ML VIAL IV ONE; +MIDAZOLAM HCL 1 MG/ML 2ML VIAL ONE; +OXYC-57 PO; +OXYCODONE/ACETAMINOPHEN 5-325 TAB PO PRN; +SODIUM CHLORIDE 0.9% 1000ML 1,000 ML IV SCH; +VNTHFA/IN INH
--- NOTE | 2017-03-26 09:10 | History and Physical ---
History & Physical Date of Service Mar 26, 2017. History & Physical Chief Complaint: CIDP History of Present Illness The patient is a 49 year old male with CIDP in need of an access for IVIG infusions. Port no longer needed Allergies Uncoded Allergies: ENVIRONMENTAL (Allergy, Mild, NASAL CONGESTION, WATERY EYES, 05/27/15) Surgical / Medical History Hx Cardiac Surgery: No Hx Abdominal Surgery: Yes (RT ING HERNIORRHAPHY, UMB HERNIA, APPY) Hx Cancer Surgery: No Hx Thoracic Surgery: No Hx Orthopedic: Yes (RT KNEE ARTHROSCOPIES) Hx Urinary Tract Surgery: Yes (LASER LITHO, STENT, BASKET EXTRACTION) HX Other Surgery: Yes (T&A, WISDOM TEETH EXTRACTION) Past Medical/Surgical History: Asthma, CHF, Hypertension, Neurological Disorder , Reflux Social History Smoking Status: Former Smoker Hx Tobacco Use In Past Year?: Yes (06/2013) Hx Alcohol Use - Type & Amnt: Yes (SOCIAL) Hx Substance Use -Type & Amnt: No Review of Systems Review of Systems Constitutional: + weakness, No chills, No diaphoresis, No fever, No malaise, No weight gain, No weight loss, No sweats, No fatigue, No problem reported Skin: No change in color, No change in hair/nails, No dryness, No lesions, No lumps, No rash, No abnormal mole, No problem reported Respiratory: No cough, No cyanosis, No GALLEGOS, No hemoptysis, No orthopnea, No PND , No short of breath, No sputum production, No stridor, No wheezing, No dyspnea , No problem reported Cardiovascular: No chest pain, No chest tightness, No chest pressure, No palpitations, No syncope, No diaphoresis, No edema, No intermittent claudication , No orthopnea, No cyanosis, No mumur, No lightheadedness, No paroxysmal nocturnal dyspnea, No problem reported Gastrointestinal: No abdominal pain, No constipation, No diarrhea, No nausea, No vomiting, No anorexia, No appetite changes, No belching, No flatulence, No food intolerance, No hematemesis, No hemorrhoids, No hematochezia, No stool changes, No heartburn, No indigestion, No dysphagia, No rectal bleeding, No problem reported Genitourinary - Male: No impotence, No penile discharge, No penile itching, No rash, No testicular pain, No testicular swelling, No hematuria, No difficulty urinating, No problem reported Musculoskeletal: + muscle weakness Neurologic: + weakness Psychiatric: No anxiety, No alcohol abuse, No auditory hallucinations, No depression, No drug abuse, No homicidal ideation, No mood changes, No suicidal ideation, No visual hallucinations, No problem reported Physical Exam Physical Exam: Constitutional: General Apperance: heathly-appearing, well-nourished, well-developed Level of Distress: NAD Ambulation: ambulating normally Psychiatric: Mental Status: active & alert, normal mood, normal affect Orientation: oriented except where noted, to time, to place, to person Memory: recent memory normal, remote memory normal Neck: supple Lungs: Auscultation: breath sounds normal Cardiovascular: Heart Auscultation: RRR Peripheral Pulses: Pulses: full and equal, in all extremities except if noted Abdomen: Inspection & Palpation: soft, non-distended Extremities: Upper Right: no cyanosis, no edema, no varicosities, no palpable cord, no clubbing, no ulcers, no mottling Upper Left: no cyanosis, no edema, no varicosities, no palpable cord, no clubbing, no ulcers, no mottling Lower Right: no cyanosis, no edema, no varicosities, no palpable cord, no clubbing, no ulcers, no mottling Lower Left: no cyanosis, no edema, no varicosities, no palpable cord, no clubbing, no ulcers, no mottling Neurologic: Cranial Nerves: grossly intact Sensation: grossly intact Assessment and Plan Imp: Chronc inflammatory demyelinating polyneuropathy Post port insertion Plan: Patient admitted for removal of infusaport. I have discussed the risks options and benefits of the procedure with the patient. The patient understands the risks options and benefits and agrees to the procedure.
--- NOTE | 2017-03-26 09:10 | Procedure Note ---
Pre-Mod Sedation Assessment General Date of Moderate Sedation: Mar 26, 2017. Pre-Sedation Airway Assessment Smoking Status: Never Smoker Mallampati Classification: Class I ASA Classification: Class III Notes The planned sedation has been discussed with the patient and consent obtained. I have identified the patient, determined the appropriateness of sedation and have assessed the patient immediately prior to the procedure. All medicine(s) and interventions are by my order.
[2017-03-26 09:21] VITALS: Ht 182.9 cm; Wt 118.0 kg
[2017-03-26 09:22] VITALS: BP 134/77; PULSE 62; TEMP 36.6; O2SAT 97
[2017-03-26 10:06] LABS: BASO % 0.5 %; BASO ABS # 0.03 K/uL (0-0.2); COMPLETE YES; EOS % 3.4 %; HEMATOCRIT 47.5 % (42-52); IG% 0.2 %; LYMPH % 37.7 %; LYMPH ABS # 2.32 K/uL (1.2-3.4); MEAN CELL VOLUME 88.6 fL (80-100); MEAN CORPUSCULAR HEMOGLOBIN 29.3 pg (25-34); MEAN CORPUSCULAR HGB CONC 33.1 g/dl (32-36); MEAN PLATELET VOLUME 9.2 fL (7.4-10.4); MONO % 11.1 %; NEUT % 47.1 %; PLATELET COUNT 294 K/uL (130-400); RED BLOOD COUNT 5.36 M/uL (4.7-6.1); WHITE BLOOD COUNT 6.15 K/uL (4.8-10.8)
[2017-03-26 10:18] LABS: PROTHROMBIN TIME (PATIENT) 10.3 SECONDS (9.0-12.0)
[2017-03-26 10:40] LABS: BUN/CREATININE RATIO 17.5 (10-20); CALCIUM 9.2 mg/dl (8.5-10.1); CREATININE 0.99 mg/dl (0.60-1.40); POTASSIUM 3.8 mmol/L (3.5-5.1)
--- NOTE | 2017-03-26 11:39 | History & Physical Bridge Note ---
H&P Re-Evaluation Bridge Note: I have examined the patient, reviewed the History & Physical and in the interval since the performance of the History & Physical I have noted the following changes of clinical significance: No changes noted
[2017-03-26 12:11] VITALS: BP 134/77; TEMP 36.6; O2SAT 97
--- NOTE | 2017-03-26 13:11 | Procedure Note ---
Post-Moderate Sedation Plan General Date of Moderate Sedation Mar 26, 2017. Vital Signs: Vital Signs Past 12 Hours Date Time Temp Pulse Resp B/P (MAP) Pulse Ox O2 Delivery O2 Flow Rate FiO2 03/26/17 12:11 36.6 22 134/77 97 Room Air 03/26/17 09:22 36.6 62 22 134/77 (96) 97 Room Air Review - Discharge Plan Post Moderate Sedation Plan: On clinical assessment, the patient appears to have tolerated the conscious sedation without complications. Patient is recovering as anticipated. Patient will continue to be monitored by nursing and may be discharged when conscious sedation discharge criteria are met.
--- NOTE | 2017-03-26 13:11 | [facility] Post Operative Brief Note ---
Immediate Operative Summary Operative Date Mar 26, 2017. Pre-Operative Diagnosis Chronc Inflammatory Demyelinating Polyneuropathy Post-Operative Diagnosis Same. Procedure(s) Performed Removal Of Aport, Moderate sedation from 1236 - [address] Bojorquez Sole Edge Inker Machine Surgeon(s) Dr. Renetta Nevarez Estimated Blood Loss 5 Findings port and catheter removed in entirety Specimens A: explant Aport Anesthesia Local with conscious sedation Complication(s) None Disposition
--- NOTE | 2017-03-26 13:12 | Discharge Instructions ---
Discharge Instructions Date of Service Mar 26, 2017. Visit Reason for Visit: Chronic Inflammatory Demeylinating Polyneuritis Discharge Discharge Diagnosis / Problem: Infusaport no longer needed Discharge Goals Goal(s): Therapeutic intervention Activity Recommendations Activity Limitations: resume your previous activity Exercise/Sports Limitations: rest today, gradually increase as tolerated Shower/Bathe: tomorrow Anesthesia . Post Anesthesia Instructions: If you have had General Anesthesia or IV Sedation: * Do not drive today. * Resume driving when surgeon permits. * Do not make important decisions or sign legal documents today. * Call surgeon for: 1. Temperature elevations greater than 101 degrees F. 2. Uncontrollable pain. 3. Excessive bleeding. 4. Persistent nausea and vomiting. 5. Medication intolerance (nausea, vomiting or rash). * For nausea and vomiting use only clear liquids such as: tea, soda, bouillon until nausea subsides, then gradually increase diet as tolerated. * If you have any concerns or questions, call your surgeon's office. If physician is unavailable and it is an emergency, call 911 or go to the nearest emergency room. . Instructions / Follow-Up Instructions / Follow-Up Call [phone] to schedule a follow up appointment if one not already scheduled. ACTIVITY RECOMMENDATIONS: See Above SPECIAL CARE INSTRUCTIONS: Call your doctor if: * Temperature above 101 degrees * Pain not relieved by pain medicine ordered * There is increased drainage or redness from any incision * You have any unanswered questions or concerns. Diet Recommendations Recommended Home Diet: resume previous diet Procedures Procedures Performed: Removal Of Aport, Moderate sedation from 1236 - 1309 Pending Studies Studies pending at discharge: no Medical Emergencies . Who to Call and When: Medical Emergencies: If at any time you feel your situation is an emergency, please call 911 immediately. . Non-Emergent Contact Non-Emergency issues call your: Surgeon . . "Provider Documentation" section prepared by Richard Bojorquez. .
[2017-03-26 13:20] VITALS: BP 135/63; PULSE 60; TEMP 36.9; O2SAT 95
[2017-03-26 13:50] VITALS: BP 133/75; PULSE 57; TEMP 36.2; O2SAT 99
--- NOTE | 2017-04-26 11:05 | DIAGNOSTIC IMAGING REPORT ---
DATE OF PROCEDURE: 03/26/2017 PREOPERATIVE DIAGNOSES: CIDP - chronic inflammatory demyelinating polyneuropathy, need of access or IVIG infusions, port no longer required. POSTOPERATIVE DIAGNOSES: Same. PROCEDURE: Removal of right IJ Infusaport. SURGEON: Dr. Richard Bojorquez. NATURAL RESOURCES EXTENSION EDUCATOR: Dr. Renetta Nevarez. ANESTHESIA: Conscious sedation 32 minutes, local. ESTIMATED BLOOD LOSS: 5 mL. COMPLICATIONS: None. CONDITION: Stable. INDICATIONS: Mr. Satya Medrano is a 51-year-old man who was diagnosed with chronic inflammatory demyelinating polyneuropathy approximately 2 years ago. He required port placement at that time for IVIG infusions. He no longer is requiring these infusions and for this reason, he is recommended to undergo port removal. Risks, benefits and alternatives were discussed with the patient and he consented to the procedure. DESCRIPTION OF PROCEDURE: The patient was taken to the OR and placed in supine position. His right neck and chest were prepped and draped in the usual sterile fashion. A safety timeout was performed and the patient, procedure, and sidedness were correctly identified. The patient was given fentanyl and Versed for conscious sedation. Local anesthesia was used to anesthetize the skin overlying the port in the area of the previous incision and surrounding the port. Incision was made with a 15 blade scalpel through the previous scar. Bovie electrocautery was used to dissect subcutaneous tissue. The port was identified. The fibrous sheath surrounding the port was incised with the 15 blade scalpel. The fibrous sheath was freed up surrounding the port and the port was removed. Manual pressure was held over the IJ puncture site with good hemostasis. The fiber sheath surrounding the port site was removed with electrocautery. Small areas of bleeding were controlled with electrocautery. The subcutaneous tissues were reapproximated with 3-0 Vicryl. The skin was reapproximated with 4-0 Vicryl in a running subcuticular fashion. Dermabond skin glue was applied to the skin incision. The patient was awakened and transferred to the PACU in stable condition. There were no immediate complications. He tolerated the procedure well. Dr. Richard Bojorquez was present for the entire procedure. I, Dr. Bojorquez was present and scrubbed for the entire procedure. [facility]
== END | disposition home or self-care (01) ==
LOC: C.ACU 08:50
PROVIDERS: ATTEND Surgery Vascular Surgery
DX: G61.81 Chronic inflammatory demyelinating polyneuritis (principal); Z90.89 Acquired absence of other organs; Z98.890 Other specified postprocedural states; Z98.818 Other dental procedure status

== ENCOUNTER → 2017-06-30 | Outpatient (CLI) | payer BC ==
[~2017-06-30] MED LIST changes: -CEFAZOLIN 1000MG/55 ML D5W IV SCH; -CEFAZOLIN 2000 MG/60 ML D5W 60 ML IV SCH; -CHOL400T5 PO; -FENTANYL CITRATE INJ 50 MCG/1 ML 2 ML VIAL IV ONE; -FENTANYL CITRATE INJ 50 MCG/1 ML 2 ML VIAL ONE; -LIDOCAINE HCL 1% 20 ML VIAL ONE; -LORA-741 PO; -MIDAZOLAM HCL 1 MG/ML 2ML VIAL IV ONE; -MIDAZOLAM HCL 1 MG/ML 2ML VIAL ONE; -OXYCODONE/ACETAMINOPHEN 5-325 TAB PO PRN; -SODIUM CHLORIDE 0.9% 1000ML 1,000 ML IV SCH
== END | disposition home or self-care (01) ==
LOC: C.MAMM 13:09
PROVIDERS: ATTEND Family Medicine
DX: M85.89 Other specified disorders of bone density and structure, multiple sites (principal)

== ENCOUNTER → 2017-08-09 | Outpatient (CLI) | payer BC ==
--- NOTE | 2017-08-09 11:13 | DIAGNOSTIC IMAGING REPORT ---
(BARIUM SWALLOW) ESOPHAGUS CLINICAL HISTORY: DIAPHRAGMATIC HERNIA COMPARISON STUDY: Abdomen and pelvis CT 01/13/2017. FLUOROSCOPY TIME: 1 minute. FINDINGS: 23 images submitted the patient swallowed barium without difficulty. The esophagus is normal in course and motility. Mild smooth narrowing of the distal esophagus is likely due to mass effect from the moderate sized fat-containing hiatal hernia seen on the prior abdomen CT. The contours of the hypopharynx are within normal limits. The stomach is below the level of the diaphragm. The barium tablet passed without difficulty. Mild gastroesophageal reflux demonstrated during the examination. IMPRESSION: 1. Mild smooth narrowing of the distal esophagus. This is likely due to mass effect from the moderate-sized fat-containing hiatal hernia which is not well appreciated by this modality but is better seen on the 01/13/[address] The stomach is below the level of the diaphragm. 2. Mild gastroesophageal reflux. Electronically signed by: Chris Burris M.D. 08/09/2017 11:12 AM Dictated Date/Time: 08/09/2017 11:07 AM
== END | disposition home or self-care (01) ==
LOC: C.RAD 10:25
PROVIDERS: ATTEND Family Medicine
DX: K44.9 Diaphragmatic hernia without obstruction or gangrene (principal)

== ENCOUNTER 2024-07-27 08:35 | Observation (INO) ==
--- NOTE | 2024-07-27 08:45 | Emergency Department Note ---
Impression & Plan Chest pain, Abdominal pain, RUQ ED Provider Note NAME: ABDIRAHMAN GARCIAS AGE: 58 SEX: M : 1965 ARRIVES VIA: Walk-In INFORMANT: Patient, family member ED PROVIDER(S): Urban Correa MD CHIEF COMPLAINT: Chest pain MEDICAL DECISION MAKING: Patient presents due to concern for chest pain. IV was established and blood work was obtained. Did complain of centralized chest pressure that did move to her shoulder blades but no ripping or tearing. IV was established and blood work was obtained. Blood work shows a normal white count hemoglobin of 13.8 normal platelet count kidney function is unremarkable. Initial EKG and troponin are unremarkable. Did consider the possibility of gallbladder disease the patient does have some reproducible right upper quadrant pain. This was ordered. Patient also did receive a nitro. The patient's nitro did improve his chest pain. Right upper quadrant ultrasound negative. Patient did have recurrence of chest pain and was given IV morphine. The patient is unable to tolerate a treadmill stress echo. I did speak the on-call hospitalist for further cardiac testing as well as telemetry monitoring. Patient is comfortable plan of care. I did speak the on-call hospitalist Dr. Urbano and the patient was admitted. Discussion w/ other healthcare providers: Dr. Urbano inpatient medicine service Prior /Outside records reviewed: I reviewed part of a primary care visit from July 23, 2023. From Dr. Rutledge. History of CHF hypertension BPH no compromise chronic inflammatory demyelinating neuropathy. Patient does receive IVIG treatments. Differential diagnosis: Cardiac ischemia, aortic dissection, pulmonary embolism, pneumothorax, pneumonia, pericarditis, myocarditis, GERD, cholecystitis, pancreatitis, musculoskeletal, as well as other pathologies were considered. Diagnostics, as interpreted by me: ECG: Sinus tachycardia, rate of 104, normal intervals, normal axis no ST elevations Cardiac monitoring: An order was placed for continuous cardiac monitoring. The monitor shows a rate of 105 with tachycardic and regular rhythm. Patient was placed on pulse oximetry Medical decision rules: none Imaging studies: I informally interpreted the patient's chest x-ray does not show obvious pneumonia or pneumothorax with formal report to follow. HPI: Patient presents due to concern for chest pain. The patient states that his centralized going to his back as well as to his left arm. He describes it as achy and occasionally sharp. Patient states it is not particularly exertional or does not seem to change with mild activity. The patient states that it began after waking up from sleep. The patient states that has been fairly constant 6 out of 10. Patient denies any prior history of DVT or PE no leg swelling or calf pain. Patient does have a history of CHF and believes he last had an echo with [facility] about a year ago. Unsure as to his ejection fraction. 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 Patient reports that he did have a tick removed by his last evening on the posterior aspect of his right arm. Not reported to be engorged. Patient does have prior bouts of Lyme's. Patient denies any cough or fever. No prior history of ND. Patient states that he has had associated nausea but no vomiting. No diaphoresis. No recent surgeries procedures hospitalizations or prolonged car plane travel. PAST MEDICAL HISTORY: See Below PAST SURGICAL HISTORY: See Below SOCIAL HISTORY: See Below HOME MEDICATIONS: See Below ALLERGIES: See Below VITALS: See Below PHYSICAL EXAMINATION: GENERAL: NAD, non-toxic. Wearing glasses. Cane at bedside. EYE EXAM: Normal conjunctiva. PERRL, no anisocoria and EOM's grossly intact w/o pain. OROPHARYNX: Moist mucus membranes, grossly normal dentition. NECK: Trachea midline, no stridor. Supple, no nuchal rigidity, no adenopathy, non-tender. No signs of meningismus. FROM of the neck with good chin to chest and neck extension. LUNGS: Clear to auscultation. Normal chest wall mechanics. HEART: NSR, no MRG. ABDOMEN: Abdomen soft, non-tender, no masses, no rebound or guarding. BACK: No CVA TTP. SKIN: No rashes and no bruising. UPPER EXTREMITIES: Upper extremities are grossly normal. LOWER EXTREMITIES: Grossly normal, no edema. Negative Homans' sign bilaterally. NEURO EXAM: A&O x3, cranial nerves II-XII grossly intact, normal speech, moves all 4 extremities. Past Med/Surg History Problem List (Updated 07/27/24 @ 16:14 by Urban Correa MD) Abdominal pain, RUQ (Acute) Chest pain (Acute) Borderline diabetes Fluid retention Hyperlipidemia Chest pain Immunocompromised Vitamin D deficiency Tinnitus of both ears Sleep apnea Sensorineural hearing loss (SNHL) of both ears Hypertension Asthma Family hx of prostate cancer Erectile dysfunction Benign prostatic hyperplasia (BPH) with straining on urination Microscopic hematuria Chronic inflammatory demyelinating neuropathy (Chronic) Anemia (Acute) Congestive heart failure (Acute) Dizziness Shortness of breath (Acute) Medical History Kidney stones (01/18/13) Lyme disease (01/18/13) 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) Surgical History Hx of tonsillectomy (01/18/13) H/O right knee surgery (01/18/13) History of arthroscopic knee surgery History of ventral hernia repair History of appendectomy Family History Other Diabetes Heart disease Hypertension Kidney disease Lung disease Social History Smoking Status: Never smoker Hx Alcohol Use: Yes Preferred Language: Guamanian Feels Safe at Home: Yes Allergies Allergies Allergy/AdvReac Type Severity Reaction Status Date / Time pollen extracts Allergy Mild ENVIRONMENTAL-NASAL Verified 07/23/23 13:25 CONGESTION,WATERY EYES Home Meds Home Medications Medication Instructions Recorded Confirmed potassium chloride 20 mEq 20 meq PO DAILY 01/27/21 07/27/24 tablet,extended release(part/cryst) albuterol sulfate 90 mcg/actuation 2 puff inhalation Q6H PRN 07/11/21 07/27/24 aerosol inhaler Shortness Of Breath Or Wheezing budesonide-formoterol HFA 80 2 puff inhalation DAILY 07/11/21 07/27/24 mcg-4.5 mcg/actuation aerosol inhaler (Symbicort) cetirizine 10 mg tablet (Zyrtec) 10 mg PO DAILY 07/11/21 07/27/24 cholecalciferol (vitamin D3) 125 125 mcg PO DAILY 07/11/21 07/27/24 mcg (5,000 unit) tablet (Vitamin D3) [id number] oil-omega 3-vit E 1 cap PO DAILY 07/11/21 07/27/24 50 mg-550 mg-300 mg-30 unit capsule furosemide 40 mg tablet 80 mg PO DAILY 07/11/21 07/27/24 gabapentin 300 mg capsule 300 mg PO TID 07/11/21 07/27/24 [id number] C-Mn 500 3 cap PO DAILY 07/11/21 07/27/24 mg-400 mg capsule lorazepam 1 mg tablet 1 mg PO DAILY PRN Anxiety 07/11/21 07/27/24 magnesium oxide 800 mg PO DAILY 07/11/21 07/27/24 metformin 750 mg tablet,extended 750 mg PO DAILY 07/11/21 07/27/24 release 24 hr montelukast 10 mg tablet 10 mg PO DAILY 07/11/21 07/27/24 oxycodone 5 mg tablet 5 mg PO Q6 PRN Pain 07/11/21 07/27/24 spironolactone 25 mg tablet 25 mg PO DAILY 07/11/21 07/27/24 verapamil 240 mg tablet,extended 240 mg PO BID 07/11/21 07/27/24 release vitamin E 670 mg (1,000 unit) 1,000 unit PO DAILY 07/11/21 07/27/24 capsule vitamins A,C,S-tuat-vyvbbw 4,296 1 cap PO DAILY 07/11/21 07/27/24 mcg-226 mg-90 mg capsule (PreserVision AREDS) tirzepatide 7.5 mg/0.5 mL 7.5 mg subcut .weekly 07/23/23 07/27/24 subcutaneous pen injector (Ray) atorvastatin 20 mg tablet 20 mg PO DAILY 07/10/24 07/27/24 Previous Rx's Medication Instructions Recorded tadalafil 5 mg tablet 5 mg PO DAILY #30 tabs 07/10/24 tamsulosin 0.4 mg capsule 0.4 mg PO DAILY #90 caps 07/10/24 Results & Data (ED) Vital Signs Vital Signs - 24 hr 07/27/24 08:35 07/27/24 08:39 07/27/24 09:01 Temperature 37.0 C Temperature Source Temporal Artery Scan Pulse Rate 108 H 92 H Pulse Rate [Apical] Pulse Rate from SpO2 Sensor Respiratory Rate 16 Respiratory Effort / Characteristics Non-Labored Spontaneous Respiratory Depth Normal Blood Pressure 130/74 Blood Pressure [Right Arm] Blood Pressure Mean 92 Blood Pressure Mean [Right Arm] Blood Pressure Position Sitting Pulse Oximetry 97 Oxygen Delivery Method Room Air Room Air Sepsis Recent Fever Within 48 Hours No Sepsis New/Unexplained Change in Mental Status N/A Sepsis Action Taken by Nursing No Action Required 07/27/24 09:06 07/27/24 10:03 07/27/24 10:12 Temperature Temperature Source Pulse Rate 84 72 71 Pulse Rate [Apical] Pulse Rate from SpO2 Sensor Respiratory Rate 21 23 12 Respiratory Effort / Characteristics Respiratory Depth Blood Pressure Blood Pressure [Right Arm] Blood Pressure Mean Blood Pressure Mean [Right Arm] Blood Pressure Position Pulse Oximetry Oxygen Delivery Method Sepsis Recent Fever Within 48 Hours Sepsis New/Unexplained Change in Mental Status Sepsis Action Taken by Nursing 07/27/24 10:22 07/27/24 10:22 07/27/24 10:22 Temperature Temperature Source Pulse Rate Pulse Rate [Apical] Pulse Rate from SpO2 Sensor Respiratory Rate Respiratory Effort / Characteristics Respiratory Depth Blood Pressure 111/60 111/60 111/60 Blood Pressure [Right Arm] Blood Pressure Mean 76 76 76 Blood Pressure Mean [Right Arm] Blood Pressure Position Pulse Oximetry Oxygen Delivery Method Sepsis Recent Fever Within 48 Hours Sepsis New/Unexplained Change in Mental Status Sepsis Action Taken by Nursing 07/27/24 10:22 07/27/24 11:39 07/27/24 12:00 Temperature Temperature Source Pulse Rate 66 Pulse Rate [Apical] 66 Pulse Rate from SpO2 Sensor 66 Respiratory Rate 19 15 Respiratory Effort / Characteristics Respiratory Depth Blood Pressure 111/60 108/64 Blood Pressure [Right Arm] 107/64 Blood Pressure Mean 76 78 Blood Pressure Mean [Right Arm] 78 Blood Pressure Position Pulse Oximetry 97 96 Oxygen Delivery Method Room Air Sepsis Recent Fever Within 48 Hours Sepsis New/Unexplained Change in Mental Status Sepsis Action Taken by Nursing 07/27/24 12:03 07/27/24 13:00 07/27/24 13:07 Temperature Temperature Source Pulse Rate 69 69 69 Pulse Rate [Apical] Pulse Rate from SpO2 Sensor 69 69 Respiratory Rate 15 25 H Respiratory Effort / Characteristics Respiratory Depth Blood Pressure 107/64 127/75 Blood Pressure [Right Arm] Blood Pressure Mean 78 92 Blood Pressure Mean [Right Arm] Blood Pressure Position Pulse Oximetry 95 97 Oxygen Delivery Method Sepsis Recent Fever Within 48 Hours Sepsis New/Unexplained Change in Mental Status Sepsis Action Taken by Nursing 07/27/24 14:03 Temperature Temperature Source Pulse Rate 69 Pulse Rate [Apical] Pulse Rate from SpO2 Sensor 72 Respiratory Rate 35 H Respiratory Effort / Characteristics Respiratory Depth Blood Pressure 136/78 Blood Pressure [Right Arm] Blood Pressure Mean 97 Blood Pressure Mean [Right Arm] Blood Pressure Position Pulse Oximetry 96 Oxygen Delivery Method Sepsis Recent Fever Within 48 Hours Sepsis New/Unexplained Change in Mental Status Sepsis Action Taken by [facility] Medications Current Medication List: was personally reviewed by me Laboratory Data Attestation: I reviewed the patient's lab results. 07/27/24 08:57 07/27/24 08:57 Lab Results 07/27/24 07/27/24 Range/Units 08:57 13:34 WBC 6.44 (4.8-10.8) K/ul RBC 4.48 L (4.70-6.10) M/uL Hgb 13.8 L (14.0-18.0) g/dl Hct 39.9 L (42.0-52.0) % MCV 89.1 (80.0-100.0) fL MCH 30.8 (25.0-34.0) pg MCHC 34.6 (32.0-36.0) g/dL RDW Std Deviation 54.3 H (36.4-46.3) fL RDW Coeff of Bekah 16.7 H (11.5-14.5) % Plt Count 299 (130-400) K/uL MPV 9.7 (9.4-12.4) fL Immature Gran % (Auto) 0.2 % Neut % (Auto) 57.7 % Lymph % (Auto) 27.8 % [place] % (Auto) 9.6 % Eos % (Auto) 4.2 % Baso % (Auto) 0.5 % Neut # (Auto) 3.72 (1.40-6.50) K/uL Lymph # (Auto) 1.79 (1.20-3.40) K/uL [place] # (Auto) 0.62 H (0.11-0.59) K/uL Eos # (Auto) 0.27 (0.00-0.50) K/uL Baso # (Auto) 0.03 (0.00-0.20) K/uL Immature Gran # (Auto) 0.01 (0.01-0.20) K/uL PT 10.4 (9.0-12.0) Seconds INR 1.0 (0.9-1.1) APTT 25 (21-31) Seconds PTT Ratio 0.9 Sodium 139 (136-145) mmol/L Potassium 4.0 (3.5-5.1) mmol/L Chloride 105 (98-107) mmol/L Carbon Dioxide 24 (21-32) mmol/L Anion Gap 10 (3-11) BUN 11 (6-23) mg/dl Creatinine 0.82 (0.6-1.4) mg/dl Est Cr Clr Drug Dosing 130.2 ml/min eGFR 101.19 BUN/Creatinine Ratio 13.4 (10-20) Glucose 133 H (70-99(Fasting)) mg/dl Estimat Average Glucose 94 mg/dl Hemoglobin A1c 4.9 (4.5-5.6) % Calcium 9.6 (8.6-10.3) mg/dl Total Bilirubin 0.4 (0.2-1.0) mg/dl AST 21 (13-39) U/L ALT 28 (7-52) U/L Alkaline Phosphatase 56 (34-104) U/L Troponin I High Sens 3.2 3.6 (0-20) pg/ml Total Protein 7.9 (6.0-8.3) gm/dl Albumin 4.6 (3.4-5.0) gm/dl Globulin 3.3 (2.5-4.0) gm/dl Albumin/Globulin Ratio 1.4 (0.9-2) Lipase 51 (11-82) U/L Lyme Disease Screen Negative (Negative) Administered Medications Discontinued Medications Al Hydrox/Mg Hydrox/Simethicone (Aluminum/Magnesium Susp 30 Ml Udc) 30 ml PO NOW STA Stop: 07/27/24 08:58 Last Admin: 07/27/24 09:03 Dose: 30 ml Documented By: MIGUEL Morphine Sulfate (Morphine Sulfate 4 Mg/Ml 1 Ml Carp\Vial) 4 mg IV NOW STA Stop: 07/27/24 11:24 Last Admin: 07/27/24 11:31 Dose: 4 mg Documented By: AARON Nitroglycerin (Nitroglycerin Sl 0.4 Mg/Tab Tab) 0.4 mg SL NOW STA Stop: 07/27/24 10:15 Last Admin: 07/27/24 10:19 Dose: 0.4 mg Documented By: MIGUEL Ondansetron HCl (Ondansetron Inj 2 Mg/Ml 2 Ml Vial) 4 mg IV NOW STA Stop: 07/27/24 08:58 Last Admin: 07/27/24 09:04 Dose: 4 mg Documented By: ARS Imaging Data Radiologist's Impression: Chest X-Ray 07/27/24 08:57 XR chest 1V portable CLINICAL HISTORY: Chest pain, nonspecific TECHNIQUE: Single frontal radiograph of the chest was obtained. Comparison: Comparison is made to chest radiograph 07/11/2021 FINDINGS: A port catheter is seen. The cardiomediastinal silhouette is normal. The lungs are clear. No evidence of pleural effusion or pneumothorax. IMPRESSION: No acute chest disease. ACT 112: Negative or not required by law. Electronically signed by: Jude Theodore M.D. 07/27/2024 10:19 AM Gallbladder Ultrasound 07/27/24 10:14 US gallbladder CLINICAL HISTORY: nausea, chest/back pain TECHNIQUE: Multiple real-time sonographic images of the right upper quadrant were obtained. Comparison: None available at the time of this dictation. FINDINGS: The liver is diffusely echogenic in appearance with poor ultrasound penetration, with normal contour, which is consistent with fatty infiltration. No focal mass lesions are seen. No intrahepatic ductal dilatation is seen. No gallstones or sludge are identified within the gallbladder. The gallbladder wall is not thickened. There is no pericholecystic fluid present. A sonographic Portillo's sign was not elicited by the first aid teacher. The common duct measures 0.4 cm in diameter at the level of the hepatic artery. The visualized portions of the pancreas appear normal. The right kidney shows normal echogenicity, cortical thickness and renal contour. The right kidney shows no evidence of hydronephrosis. There is a simple appearing cyst measuring 1.3 x 1.3 x 2.3 cm. Incidental note is made of stones in the lower pole. No ascites or free fluid is seen in Cota's pouch. IMPRESSION: Hepatic steatosis. ACT 112: Negative or not required by law. Electronically signed by: Jude Theodore M.D. 07/27/2024 11:33 AM Discharge Plan Visit Data Chief Complaint: Chest Pain Stated Complaint: CHEST PAIN BETWEEN SHOULDER BLADES AND DOWN L ARM ED Provider: Urban Correa Discharge Problem: Chest pain, Abdominal pain, RUQ Forms Stand Alone Forms: [facility] Prescriptions Prescriptions: No Action Mounjaro 7.5 mg/0.5 mL pen injector 7.5 mg subcut .weekly potassium chloride 20 mEq tablet,ER particles/crystals 20 meq PO DAILY atorvastatin 20 mg tablet 20 mg PO DAILY tadalafil 5 mg tablet 5 mg PO DAILY Qty: 30 11RF tamsulosin 0.4 mg capsule 0.4 mg PO DAILY Qty: 90 3RF spironolactone 25 mg tablet 25 mg PO DAILY verapamil 240 mg tablet extended release 240 mg PO BID oxycodone 5 mg tablet 5 mg PO Q6 PRN (Reason: Pain) metformin 750 mg tablet extended release 24 hr 750 mg PO DAILY lorazepam 1 mg tablet 1 mg PO DAILY PRN (Reason: Anxiety) gabapentin 300 mg capsule 300 mg PO TID montelukast 10 mg tablet 10 mg PO DAILY furosemide 40 mg tablet 80 mg PO DAILY budesonide-formoterol [Symbicort] 80-4.5 mcg/actuation HFA aerosol inhaler 2 puff INHALATION DAILY cetirizine [Zyrtec] 10 mg Tablet 10 mg PO DAILY albuterol sulfate 90 mcg/actuation Hfa Aerosol Inhaler 2 puff INHALATION Q6H PRN (Reason: Shortness Of Breath Or Wheezing) PreserVision AREDS [id number] Capsule 1 cap PO DAILY cholecalciferol (vitamin D3) [Vitamin D3] 125 mcg (5,000 unit) Tablet 125 mcg PO DAILY magnesium oxide 400 mg magnesium Tablet 800 mg PO DAILY vitamin E 1,000 unit Capsule 1,000 unit PO DAILY [id number]-jafsxvoou-mdy C-Mn [Glucosamine 1500 Complex] 500-400 mg Capsule 3 cap PO DAILY co [id number] oil-omega 3-E [id number] he-gn-os-unit Capsule 1 cap PO DAILY Referrals Referrals: Lilly Macias PA-C [Primary Care Provider] - Discharge Problem: Chest pain Qualifiers: Chest pain type: unspecified Qualified Code(s): R07.9 - Chest pain, unspecified
[2024-07-27] MEDS: ALUMINUM/MAGNESIUM SUSP 30 ML UDC PO STA (09:03)
[2024-07-27] MEDS: ONDANSETRON INJ 2 MG/ML 2 ML VIAL IV STA (09:04)
[2024-07-27 09:13] LABS: Basophils # (auto) 0.03 K/uL (0.00-0.20); Basophils % (auto) 0.5 %; Eosinophils # (auto) 0.27 K/uL (0.00-0.50); Eosinophils % (auto) 4.2 %; Hematocrit (blood only) 39.9 % (42.0-52.0); Hemoglobin 13.8 g/dl (14.0-18.0); Immature Granulocytes # (auto) 0.01 K/uL (0.01-0.20); Immature Granulocytes % (auto) 0.2 %; Lymphocytes # (auto) 1.79 K/uL (1.20-3.40); Lymphocytes % (auto) 27.8 %; Mean Corpuscular Hemoglobin 30.8 pg (25.0-34.0); Mean Corpuscular Hgb Conc 34.6 g/dL (32.0-36.0); Mean Corpuscular Volume 89.1 fL (80.0-100.0); Mean Platelet Volume 9.7 fL (9.4-12.4); Monocytes # (auto) 0.62 K/uL (0.11-0.59); Monocytes % (auto) 9.6 %; Neutrophils # (auto) 3.72 K/uL (1.40-6.50); Neutrophils % (auto) 57.7 %; Platelet Count 299 K/uL (130-400); RDW Coefficient of Variation 16.7 % (11.5-14.5); RDW Standard Deviation 54.3 fL (36.4-46.3); Red Blood Count 4.48 M/uL (4.70-6.10); White Blood Count 6.44 K/ul (4.8-10.8)
[2024-07-27 09:31] LABS: Albumin Globulin Ratio 1.4 (0.9-2); Albumin Level 4.6 gm/dl (3.4-5.0); BUN Creatinine Ratio 13.4 (10-20); Bilirubin,Total 0.4 mg/dl (0.2-1.0); Calcium 9.6 mg/dl (8.6-10.3); Creatinine Clr Calc Pharmacy 130.2 ml/min; Globulin 3.3 gm/dl (2.5-4.0); Total Protein 7.9 gm/dl (6.0-8.3)
[2024-07-27 09:39] LABS: Troponin I High Sensitivity 3.2 pg/ml (0-20)
[2024-07-27 09:44] LABS: Partial Thromboplastin Ratio 0.9; Partial Thromboplastin Time 25 Seconds (21-31); Prothrombin Time 10.4 Seconds (9.0-12.0)
[2024-07-27] MEDS: NITROGLYCERIN SL 0.4 MG/TAB TAB SL STA (10:19)
--- NOTE | 2024-07-27 10:21 | XRay Report ---
XR chest 1V portable CLINICAL HISTORY: Chest pain, nonspecific TECHNIQUE: Single frontal radiograph of the chest was obtained. Comparison: Comparison is made to chest radiograph 07/11/2021 FINDINGS: A port catheter is seen. The cardiomediastinal silhouette is normal. The lungs are clear. No evidence of pleural effusion or pneumothorax. IMPRESSION: No acute chest disease. ACT 112: Negative or not required by law. Electronically signed by: Jude Theodore M.D. 07/27/2024 10:19 AM
[2024-07-27] MEDS: MoRPHine SULFATE 4 MG/ML 1 ML CARP\\VIAL IV STA (11:31)
--- NOTE | 2024-07-27 11:34 | Ultrasound Report ---
US gallbladder CLINICAL HISTORY: nausea, chest/back pain TECHNIQUE: Multiple real-time sonographic images of the right upper quadrant were obtained. Comparison: None available at the time of this dictation. FINDINGS: The liver is diffusely echogenic in appearance with poor ultrasound penetration, with normal contour, which is consistent with fatty infiltration. No focal mass lesions are seen. No intrahepatic duct al dilatation is seen. No gallstones or sludge are identified within the gallbladder. The gallbladde r wall is not thickened. There is no pericholecystic fluid present. A sonographic Portillo's sign was n ot elicited by the dye room helper. The common duct measures 0.4 cm in diameter at the level of the hep atic artery. The visualized portions of the pancreas appear normal. The right kidney shows normal echogenicity, cortical thickness and renal contour. The right kidney sh ows no evidence of hydronephrosis. There is a simple appearing cyst measuring 1.3 x 1.3 x 2.3 cm. Inc idental note is made of stones in the lower pole. No ascites or free fluid is seen in Cota's pouch. IMPRESSION: Hepatic steatosis. ACT 112: Negative or not required by law. Electronically signed by: Jude Theodore M.D. 07/27/2024 11:33 AM
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
[2024-07-27 13:39] LABS: Estimated Average Glucose 94 mg/dl; Hemoglobin A1C 4.9 % (4.5-5.6)
[2024-07-27] MEDS ORDERED: ACETAMINOPHEN 325 MG TAB PO PRN (17:50)
[2024-07-27] MEDS ORDERED: DEXTROSE 50% 50 ML SYRINGE IV PRN (17:50)
[2024-07-27] MEDS ORDERED: GLUCAGON FOR INJ 1 MG VIAL SQ PRN (17:50)
[2024-07-27] MEDS ORDERED: ALBUTEROL HFA 8 GM INHALER INH PRN (17:50)
[2024-07-27] MEDS ORDERED: CARBOHYDRATES FOR HYPOGLYCEMIA PO PRN (17:50)
[2024-07-27] MEDS ORDERED: GLUCOSE 10 TAB/TUBE PO PRN (17:50)
[2024-07-27] MEDS ORDERED: ONDANSETRON INJ 2 MG/ML 2 ML VIAL IV PRN (17:50)
[2024-07-27] MEDS ORDERED: ALUMINUM/MAGNESIUM SUSP 30 ML UDC PO PRN (17:50)
[2024-07-27] MEDS ORDERED: GLUCOSE 40% GEL 15 GM TUBE PO PRN (17:50)
[2024-07-27] MEDS ORDERED: LORazepam 1 MG TAB PO PRN (17:50)
[2024-07-27] MEDS: oxyCODONE HCL IR 5 MG TAB (IMMEDIATE RELEASE) PO PRN (18:28)
[2024-07-27 19:37] VITALS: RESP 18
[2024-07-27] MEDS: GABAPENTIN 300 MG CAP PO SCH (19:58)
[2024-07-27] MEDS: VERAPAMIL HCL 240 MG TABCR PO SCH (20:01)
--- NOTE | 2024-07-28 07:15 | Electrocardiogram Report ---
Test Reason : Blood Pressure : */* mmHG Vent. Rate : 104 BPM Atrial Rate : 104 BPM P-R Int : 174 ms QRS Dur : 86 ms QT Int : 336 ms P-R-T Axes : 28 13 25 degrees QTcB Int : 441 ms Sinus tachycardia Cannot rule out Anterior infarct , age undetermined Abnormal ECG When compared with ECG of 11-Jul-2021 02:43, Vent. rate has increased by 42 bpm Confirmed by Slade Donahue ([id number]) on 07/28/2024 7:15:17 AM Referred By: Confirmed By: Slade Donahue
[2024-07-28] MEDS: POTASSIUM CHLORIDE CRTAB 20 MEQ TABCR PO SCH (08:03)
[2024-07-28 08:04] LABS: Basophils # (auto) 0.02 K/uL (0.00-0.20); Basophils % (auto) 0.3 %; Eosinophils # (auto) 0.36 K/uL (0.00-0.50); Eosinophils % (auto) 5.3 %; Hematocrit (blood only) 38.8 % (42.0-52.0); Hemoglobin 13.1 g/dl (14.0-18.0); Immature Granulocytes # (auto) 0.02 K/uL (0.01-0.20); Immature Granulocytes % (auto) 0.3 %; Lymphocytes # (auto) 1.61 K/uL (1.20-3.40); Lymphocytes % (auto) 23.8 %; Mean Corpuscular Hemoglobin 30.5 pg (25.0-34.0); Mean Corpuscular Hgb Conc 33.8 g/dL (32.0-36.0); Mean Corpuscular Volume 90.2 fL (80.0-100.0); Mean Platelet Volume 9.9 fL (9.4-12.4); Monocytes # (auto) 0.64 K/uL (0.11-0.59); Monocytes % (auto) 9.5 %; Neutrophils # (auto) 4.11 K/uL (1.40-6.50); Neutrophils % (auto) 60.8 %; Platelet Count 305 K/uL (130-400); RDW Coefficient of Variation 17.2 % (11.5-14.5); RDW Standard Deviation 56.1 fL (36.4-46.3); White Blood Count 6.76 K/ul (4.8-10.8)
[2024-07-28] MEDS: FUROSEMIDE 80 MG TAB PO SCH (08:04)
[2024-07-28] MEDS: ATORVASTATIN 20 MG TAB PO SCH (08:04)
[2024-07-28] MEDS: TAMSULOSIN HCL 0.4 MG CAP PO SCH (08:04)
[2024-07-28] MEDS: CETIRIZINE HCL 10 MG TABLET PO SCH (08:04)
[2024-07-28] MEDS: MAGNESIUM OXIDE 400 MG TAB PO SCH (08:04)
[2024-07-28] MEDS: FLUTICASONE/VILANTEROL 100/25MCG 14 PUFFS/INHALER INH SCH (08:04)
[2024-07-28] MEDS: MONTELUKAST SODIUM 10 MG TABLET PO SCH (08:05)
[2024-07-28] MEDS: SPIRONOLACTONE 25 MG TAB PO SCH (08:05)
[2024-07-28 08:20] LABS: BUN Creatinine Ratio 11.7 (10-20); Calcium 9.3 mg/dl (8.6-10.3); Creatinine Clr Calc Pharmacy 113.6 ml/min; Potassium 4.3 mmol/L (3.5-5.1)
[2024-07-28 08:27] VITALS: O2SAT 96
--- NOTE | 2024-07-28 08:44 | Cardiology Consultation ---
Date of Consultation July 28, 2024 Assessment & Plan (1) Chest pain: Plan Pmhx: 1. KRISTINE on CPAP 2. Chronic inflammatory demyelinating polyneuropathy requiring apheresis treatment 3. Asthma 4. HtN 5. Fluid retention secondary to steroids and volume administration during CIDP t reatment 6. Echo 01/2021 with normal biventricular size and function, normal left atrial pressures and no valvulopathy 7. Cardiac catheterization 05/2019 without evidence of epicardial coronary artery disease and mildly elevated pulmonary artery pressure, mildly elevated left ventricular and diastolic pressure, mildly elevated pulmonary wedge pressure with normal PVR. Mr. Medrano's description of his chest pain sounds musculoskeletal given it's reproducibility with palpation and twisting. It's reassuring that he did not have ischemic changes on EKG or troponin elevation. He is pain free at this time. I did ask him to walk the halls and make sure he feels ok doing so. Given the resolution of his symptoms, the musculoskeletal nature of his presentation, and the lack of preceding exertional symptoms, I would not recommend stress testing at this time. History of Present Illness Attending Physician: Windy Stratton MD History of Present Illness Mr. Medrano presented to the emergency department yesterday morning after 3 hours of chest pain starting when he got up this morning around 4:30. His pain lasted about 5 hours overall and resolved with morphine and nitro. He had epigastric/substernal chest pain radiating to his arm and between his shoulder blades. No associated shortness of breath. He notes that the area was very tender to palpation and the pain got much worse after the ED provider pushed on it. It was also worse with twisting motions. No ischemic changes on EKG, HS troponin has remained normal. He has been chest pain free since that time. He has been in sinus rhythm on the laboratory monitor. Allergies Allergy/AdvReac Type Severity Reaction Status Date / Time pollen extracts Allergy Mild ENVIRONMENTAL-NASAL Verified 07/23/23 13:25 CONGESTION,WATERY EYES Home Medications Medication Instructions Recorded Confirmed Type potassium chloride 20 mEq 20 meq PO DAILY 01/27/21 07/27/24 History tablet,extended release(part/cryst) albuterol sulfate 90 mcg/actuation 2 puff inhalation Q6H PRN 07/11/21 07/27/24 History aerosol inhaler Shortness Of Breath Or Wheezing budesonide-formoterol HFA 80 2 puff inhalation DAILY 07/11/21 07/27/24 History mcg-4.5 mcg/actuation aerosol inhaler (Symbicort) cetirizine 10 mg tablet (Zyrtec) 10 mg PO DAILY 07/11/21 07/27/24 History cholecalciferol (vitamin D3) 125 125 mcg PO DAILY 07/11/21 07/27/24 History mcg (5,000 unit) tablet (Vitamin D3) [id number] oil-omega 3-vit E 1 cap PO DAILY 07/11/21 07/27/24 History 50 mg-550 mg-300 mg-30 unit capsule furosemide 40 mg tablet 80 mg PO DAILY 07/11/21 07/27/24 History gabapentin 300 mg capsule 300 mg PO TID 07/11/21 07/27/24 History zbjogkpseyh-kgxdvmbzt-rml C-Mn 500 3 cap PO DAILY 07/11/21 07/27/24 History mg-400 mg capsule lorazepam 1 mg tablet 1 mg PO DAILY PRN Anxiety 07/11/21 07/27/24 History magnesium oxide 800 mg PO DAILY 07/11/21 07/27/24 History metformin 750 mg tablet,extended 750 mg PO DAILY 07/11/21 07/27/24 History release 24 hr montelukast 10 mg tablet 10 mg PO DAILY 07/11/21 07/27/24 History oxycodone 5 mg tablet 5 mg PO Q6 PRN Pain 07/11/21 07/27/24 History spironolactone 25 mg tablet 25 mg PO DAILY 07/11/21 07/27/24 History verapamil 240 mg tablet,extended 240 mg PO BID 07/11/21 07/27/24 History release vitamin E 670 mg (1,000 unit) 1,000 unit PO DAILY 07/11/21 07/27/24 History capsule vitamins A,C,E-aawo-lnklzz 4,296 1 cap PO DAILY 07/11/21 07/27/24 History mcg-226 mg-90 mg capsule (PreserVision AREDS) tirzepatide 7.5 mg/0.5 mL 7.5 mg subcut .weekly 07/23/23 07/27/24 History subcutaneous pen injector (Mounjaro) atorvastatin 20 mg tablet 20 mg PO DAILY 07/10/24 07/27/24 History tadalafil 5 mg tablet 5 mg PO DAILY #30 tabs 07/10/24 07/27/24 Rx tamsulosin 0.4 mg capsule 0.4 mg PO DAILY #90 caps 07/10/24 07/27/24 Rx Patient History Medical History Kidney stones (01/18/13) Lyme disease (01/18/13) 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) Surgical History Hx of tonsillectomy (01/18/13) H/O right knee surgery (01/18/13) History of arthroscopic knee surgery History of ventral hernia repair History of appendectomy Family History Other Diabetes Heart disease Hypertension Kidney disease Lung disease Social History Smoking Status: Never smoker Hx Alcohol Use: Yes Alcohol type: beer Hx Substance Use: No Preferred Language: German Communication Ability: Effective Accounts Receivable Clerk Required: No Beliefs That Will Affect Care: None Current Living Situation: Spouse Current Living Situation Comment: 2 story home with Spouse and one adult son Feels Safe at Home: Yes Safety Concerns: Feels Safe At This Time Assistive Devices: Cane and CPAP Review of Systems Review of Systems: All systems reviewed & are unremarkable except as noted in HPI & below Physical Exam Constitutional: WD/WN, vitals as above Respiratory: normal respiratory effort, lungs clear to auscultation Skin: no rashes, warm and dry Neurologic: moves all extremities and awake Psychiatric: A+Ox3, euthymic affect Results & Data Vital Signs (Past 12 Hours) Vital Signs Temp Pulse Pulse Resp BP Pulse Ox O2 Del Method 07/28/24 08:26 36.7 C 71 18 124/73 96 Room Air 07/28/24 07:04 83 07/28/24 03:35 36.4 C L 72 18 105/61 98 Room Air 07/27/24 23:19 36.4 C L 70 18 105/56 L 97 Room Air 07/27/24 21:51 79 (1) Chest pain Chest pain type: unspecified Qualified Code(s): R07.9 - Chest pain, unspecified
[2024-07-28 11:31] VITALS: BP 128/75; TEMP 97.5
--- NOTE | 2024-07-28 14:20 | Discharge Summary ---
Discharge Summary Date of Service July 28, 2024 Principal Dx & Hospital Course #1 = Principal Diagnosis (1) Chest pain: Chest pain shortly after waking up at 0430 on 07/27 that was severe, burning in nature, with radiation down the left arm and between the shoulder blades. Last 4-5 hours and was relieved with nitro and morphine in ER. He has pain with touching the anterior chest wall. Also reports at one point he felt like his heart was really racing and in the past has had HR as high as 200 beats per min at home-about twice per month. Has a h/o hiatal hernia and drinks pots of coffee,eats a lot of spicy foods. CXR negative, ECG with sinus tachycardia, troponin negative x 2. Seen by Cardiology and felt to be MSK. I agree with MSK vs possible esophageal spasm. Pain is reproducible to some degree on palpation. Start Protonix 40mg daily x 1 month, try topical voltaren gel or home oxycodone for pain No stress test needed No arrhythmias on tele here but given possible SVT episodes at home--> will arrange for home event monitor x 30 days-d/w Cardiology SCIENTIFIC RECRUITER Dc to home (2) Borderline diabetes: A1c 4.9% and used to be on high dose prednisone for 3 years, now improved on Mounjaro-continue on discharge resume home metformin at home With fatty liver on US here, no gallstones--> advised ongoing low carb diet and further weight loss (3) Fluid retention: Continue Lasix, spironolactone, and potassium supplementation Cardio visit on 11/2022: Last known echocardiogram 01/2021 with no significant valvular heart disease (4) Sleep apnea: CPAP HS (5) Chronic inflammatory demyelinating neuropathy: Continue oxycodone q6h PRN, monthly IVIG infusions (6) Hypertension: Continue verapamil, aldactone, lasix (7) Hyperlipidemia: Continue atorvastatin Plan Disposition: dc to home VTE PPx: SCDs Notes For Next Care Provider Needs 30 day event monitor Medication Changes From Visit Added Protonix 40mg po daily Admission HPI Per Admitting Provider Satya is a 58-year-old male with PMH of CHF, chronic inflammatory demyelinating neuropathy, BPH, asthma, HTN, sleep apnea, and tinnitus. He presented on 07/27 for chest pain shortly after waking up around 0430. Patient reports that the chest pain did not wake him from sleep, but after he stood up from bed, he felt the chest pain come on. The chest pain was central, and he characterizes it as a constant "burning" pain. Initially, he thought it might be indigestion, but then he felt the pain radiate down his left arm and towards his back between his shoulder blades. He characterized it as a "knife" shoved into his back. He does have a history of similar episodes with pain and radiation down the left arm (2005, 2007, 2015), however this was the first time where he had pain between his shoulder blades. Twisting made the pain worse. He denies any recent injuries to his chest wall or strained muscles. The pain lasted from approximately 4:30 in the morning to 930 when he arrived in the ED and received pain medicine; it has been tolerable since this point. He reports that the pain is 3/10 after receiving pain medicine in the ED, but it was much more severe earlier. No history of GERD or indigestion to his knowledge. No recent change in diet. Patient does have a history of heart catheterizations, but does not have any stent placed. No history of WA, DVT/PE, or pancreatitis. PMH of DM, HTN, HLD, and kidney stones. Patient took his regular morning medicines today; no recent change in medications. Patient took his regular oxycodone this morning; he takes oxycodone tablets every 6 hours as needed for his inflammatory demyelinating neuropathy. Not currently on blood thinners. He has had stress test in the past, but is unable to perform a ambulatory stress test as he is unable to keep up on the treadmill (knee issues); he tends to do dobutamine tests. Patient is a current chewing tobacco user. He denies smoking or recent alcohol use. He reports that he did have a tick bite yesterday on the back of his upper right arm; the tick was removed, and he has not noticed any other rashes on his body chest wall. He does have a history of Lyme disease x 3. Patient's vitals are stable at time of admission. ED Course: Zofran 4 mg IV Maalox 30 mL p.o. Nitroglycerin 0.4 mg SL Morphine sulfate 4 mg IV ROS: Patient endorses chest pain, chest palpitations this morning (resolved), nausea, and chronic numbness and tingling down the arms. Patient denies fever, chills, night-sweats, dizziness, lightheadedness, GUTHRIE, rashes on the chest wall, SOB, pleuritic CP, cough, abdominal pain, vomiting, diarrhea, changes in urinary or bowel habits, burning with urination, or blood in the urine or stool. Discharge Exam Constitutional WD/WN, vitals as above Neck trachea midline, no thyromegaly Respiratory normal respiratory effort, lungs clear to auscultation Cardiovascular RRR, no murmur, no edema Chest (Breasts) Chest: normal inspection of chest (+TTP over left sternocostal jxn) Gastrointestinal (Abdomen) normal bowel sounds, soft, nontender, no hepatosplenomegaly Musculoskeletal Extremities: extremities normal to inspection; no cyanosis and no clubbing Skin no rashes, warm and dry Neurologic moves all extremities and awake; no focal motor deficits Psychiatric A+Ox3, euthymic affect Discharge Plan Discharge Items Patient Disposition: Home - Self-Care Reason For Visit: CHEST PAIN Discharge Diagnosis: Chest pain-noncardiac Possibly musculoskeletal chest pain or esophageal spasm from acid reflux Tachycardia Activity: Resume your previous activity Non-emergency contact: Primary Care Provider and Framing Mill Operator Call non-emergency contact if: you have any medication questions, your symptoms worsen and your pain is not controlled Follow-up/Referrals: Lilly Macias PA-C [Primary Care Provider] - (Please follow up within 1-2 weeks. ) Diet: Heart Healthy Addtl Attending Provider Instructions: You were admitted with chest pain that was not from your heart. Because you have a hiatal hernia, it could have been from acid reflux causing your esophagus to spasm. Take Protonix for one month as an antacid and cut down on the amount of coffee you drink. Weight loss is helpful to improve your fatty liver as well as help with your hiatal hernia. Because you sometimes feel a fast heart rate, we will arrange for you to get a heart monitor to look for a rapid heartbeat. This may also be a muscle strain or inflammation of the cartilage where the ribs meet the sternum. You can use over the counter antiinflammatory cream to help this or take tylenol. Pending Studies at Discharge: No Stand-Alone Forms: My [employer], Smoking Cessation Medications and DC Order Prescriptions: New pantoprazole 40 mg Tablet,Delayed Release (Dr/Ec) 40 mg PO QAM Qty: 30 0RF Continued Mounjaro 7.5 mg/0.5 mL pen injector 7.5 mg subcut .weekly potassium chloride 20 mEq tablet,ER particles/crystals 20 meq PO DAILY atorvastatin 20 mg tablet 20 mg PO DAILY tadalafil 5 mg tablet 5 mg PO DAILY Qty: 30 11RF tamsulosin 0.4 mg capsule 0.4 mg PO DAILY Qty: 90 3RF spironolactone 25 mg tablet 25 mg PO DAILY verapamil 240 mg tablet extended release 240 mg PO BID oxycodone 5 mg tablet 5 mg PO Q6 PRN (Reason: Pain) metformin 750 mg tablet extended release 24 hr 750 mg PO DAILY lorazepam 1 mg tablet 1 mg PO DAILY PRN (Reason: Anxiety) gabapentin 300 mg capsule 300 mg PO TID montelukast 10 mg tablet 10 mg PO DAILY furosemide 40 mg tablet 80 mg PO DAILY budesonide-formoterol [Symbicort] 80-4.5 mcg/actuation HFA aerosol inhaler 2 puff INHALATION DAILY cetirizine [Zyrtec] 10 mg Tablet 10 mg PO DAILY albuterol sulfate 90 mcg/actuation Hfa Aerosol Inhaler 2 puff INHALATION Q6H PRN (Reason: Shortness Of Breath Or Wheezing) PreserVision AREDS [phone] odze-dc-mbde Capsule 1 cap PO DAILY cholecalciferol (vitamin D3) [Vitamin D3] 125 mcg (5,000 unit) Tablet 125 mcg PO DAILY magnesium oxide 400 mg magnesium Tablet 800 mg PO DAILY vitamin E 1,000 unit Capsule 1,000 unit PO DAILY [id number] C-Mn [Glucosamine 1500 Complex] 500-400 mg Capsule 3 cap PO DAILY co [id number] oil-omega 3-E [id number] mc-xf-ch-unit Capsule 1 cap PO DAILY Discharge Orders: Discharge Order (Routine); Ordered 07/28/24 Ordered By: Windy Stratton Admission Data Admit Date/Time: 07/27/24 12:49 Attending Provider: Windy Stratton Admit Provider: Reinaldo Urbano Primary Care Provider: Lilly Macias Other Providers: Reinaldo Urbano; [facility] Stay Data Consultations 07/27/24 12:06 ED Decision to Admit Stat 07/27/24 17:50 Consult Cardiology Routine Diagnostic Imagining Performed 07/27/24 10:14 US gallbladder Stat Pending Results Patient Have Any Pending Studies at Discharge: No Discharge Instructions Given to Patient (Per Discharging Provider) You were admitted with chest pain that was not from your heart. Because you have a hiatal hernia, it could have been from acid reflux causing your esophagus to spasm. Take Protonix for one month as an antacid and cut down on the amount of coffee you drink. Weight loss is helpful to improve your fatty liver as well as help with your hiatal hernia. Because you sometimes feel a fast heart rate, we will arrange for you to get a heart monitor to look for a rapid heartbeat. This may also be a muscle strain or inflammation of the cartilage where the ribs meet the sternum. You can use over the counter antiinflammatory cream to help this or take tylenol. Total Time Total Time Spent Total Time Spent (In Minutes): 35 min Total Time Includes: Examination of the Patient, Discharge Planning, Medication Reconciliation and Communication With Other Providers (Cardiology ENERGY SCHEDULER) Coding Level of Care Code 89264 INP/OBS DISCH >30 MIN Diagnoses Chest pain R07.9 Borderline diabetes R73.03 Fluid retention R60.9 Sleep apnea G47.30 Chronic inflammatory demyelinating neuropathy G61.81 Hypertension I10 Hyperlipidemia E78.5
[2024-07-28 14:24] VITALS: PULSE 78
[2024-07-29] MEDS ORDERED: PANTOprazole 40 MG TAB PO SCH (09:00)
== END 2024-07-28 14:40 | disposition home or self-care (01) ==
LOC: ED 08:35 → EDINP 08:35 → SUATTDRO 12:49 → 2N 18:10